=== PATIENT | female | born 1945 | race Caucasian/White ===

== ENCOUNTER 2017-08-31 01:32 | Emergency (ER) | payer OTHER ==
[~2017-08-31 01:32] MED LIST: AZIT250T PO; PRED20TA PO
[2017-08-31 02:08] LABS: BASO # 0.1 x10^3/uL (0.0-0.2); BASO % 1 % (0-3); EOS % 2 % (0-3); HEMATOCRIT 44.5 % (36.0-47.0); HEMOGLOBIN 15.1 g/dL (12.0-15.5); LYMPH # 2.6 x10^3/uL (1.0-4.8); LYMPH % 30 % (24-48); MEAN CORPUSCULAR HEMOGLOBIN 32 pg (25-35); MEAN CORPUSCULAR HGB CONC 34 g/dL (31-37); MEAN CORPUSCULAR VOLUME 94 fL (79-100); MONO % 7 % (0-9); NEUT % 61 % (31-73); PLATELET COUNT 172 x10^3/uL (140-400); RED BLOOD COUNT 4.76 x10^6/uL (3.50-5.40); RED CELL DISTRIBUTION WIDTH 13.6 % (11.5-14.5); WHITE BLOOD COUNT 8.8 x10^3/uL (4.0-11.0)
[2017-08-31 02:17] LABS: CALCIUM 9.7 mg/dL (8.5-10.1); CREATININE 0.8 mg/dL (0.6-1.0); GFR 70.9; POTASSIUM 3.4 mmol/L (3.5-5.1)
--- NOTE | 2017-08-31 02:19 | PHYS DOC ---
Past Medical History Past Medical History: Hypertension Past Surgical History: Smoking: Cigarettes Alcohol Use: None Drug Use: None Adult General Chief Complaint Chief Complaint: ABDOMINAL PAIN HPI HPI Patient is a 71 year old FEMALE who presents with abdominal pain. Started at 1700 PM on Wednesday. Pain has been constant. It is on her left side. No nausea or vomiting. Normal stools; no diarrhea or blood. No recent travel. Ate citizen of [place] food yesterday. No difficulty urinating. Review of Systems Review of Systems Constitutional: Denies fever or chills Eyes: Denies change in visual acuity, redness, or eye pain HENT: Denies nasal congestion or sore throat Respiratory: Denies cough or shortness of breath Cardiovascular: No chest pain GI: See HPI : Denies dysuria or hematuria Musculoskeletal: Denies back pain or joint pain Integument: Denies rash or skin lesions Neurologic: Denies headache, focal weakness or sensory changes Current Medications Current Medications Current Medications Medications (Trade) Dose Ordered Sig/Ester Start Time Stop Time Status Last Admin Dose Admin Fentanyl Citrate (Fentanyl 2ml Vial) 50 mcg 1X ONCE 08/31/17 02:30 08/31/17 02:31 DC 08/31/17 02:13 50 MCG Hydromorphone HCl (Dilaudid) 0.5 mg 1X ONCE 08/31/17 03:00 08/31/17 03:01 DC 08/31/17 02:58 0.5 MG Ondansetron HCl (Zofran) 4 mg 1X ONCE 08/31/17 02:30 08/31/17 02:31 DC 08/31/17 02:13 4 MG Allergies Allergies Allergies Coded Allergies Type Severity Reaction Last Updated Verified No Known Drug Allergies 07/24/16 No Physical Exam Physical Exam Constitutional: Well developed, well nourished, no acute distress, non-toxic appearance. HENT: Normocephalic, atraumatic, bilateral external ears normal, oropharynx moist, no oral exudates, nose normal. Eyes: PERRLA, EOMI, conjunctiva normal, no discharge. Neck: Normal range of motion, no tenderness, supple, no stridor. Cardiovascular:Heart rate regular rhythm, no murmur Lungs & Thorax: Bilateral breath sounds clear to auscultation Abdomen: Bowel sounds normal, soft, tenderness left side; no rebound or guarding, no masses, no pulsatile masses. Skin: Warm, dry, no erythema, no rash. Back: No tenderness, no CVA tenderness. Extremities: No tenderness, no cyanosis, no clubbing, ROM intact, no edema. Neurologic: Alert and oriented X 3, normal motor function, normal sensory function, no focal deficits noted. Psychologic: Affect normal, judgement normal, mood normal. Current Patient Data Vital Signs Vital Signs Date Time Temp Pulse Resp B/P (MAP) Pulse Ox O2 Delivery O2 Flow Rate FiO2 08/31/17 02:27 16 85 Room Air 08/31/17 01:40 98.6 81 199/104 (135) 98.6 Lab Values Laboratory Tests Test 08/31/17 01:41 White Blood Count 8.8 x10^3/uL (4.0-11.0) Red Blood Count 4.76 x10^6/uL (3.50-5.40) Hemoglobin 15.1 g/dL (12.0-15.5) Hematocrit 44.5 % (36.0-47.0) Mean Corpuscular Volume 94 fL (79-100) Mean Corpuscular Hemoglobin 32 pg (25-35) Mean Corpuscular Hemoglobin Concent 34 g/dL (31-37) Red Cell Distribution Width 13.6 % (11.5-14.5) Platelet Count 172 x10^3/uL (140-400) Neutrophils (%) (Auto) 61 % (31-73) Lymphocytes (%) (Auto) 30 % (24-48) Monocytes (%) (Auto) 7 % (0-9) Eosinophils (%) (Auto) 2 % (0-3) Basophils (%) (Auto) 1 % (0-3) Neutrophils # (Auto) 5.4 x10^3uL (1.8-7.7) Lymphocytes # (Auto) 2.6 x10^3/uL (1.0-4.8) Monocytes # (Auto) 0.6 x10^3/uL (0.0-1.1) Eosinophils # (Auto) 0.2 x10^3/uL (0.0-0.7) Basophils # (Auto) 0.1 x10^3/uL (0.0-0.2) Prothrombin Time 12.7 SEC (11.7-14.0) Prothrombin Time INR 1.0 (0.8-1.1) PTT 28 SEC (24-38) Sodium Level 143 mmol/L (136-145) Potassium Level 3.4 mmol/L (3.5-5.1) L Chloride Level 106 mmol/L (98-107) Carbon Dioxide Level 33 mmol/L (21-32) H Anion Gap 4 (6-14) L Blood Urea Nitrogen 15 mg/dL (7-20) Creatinine 0.8 mg/dL (0.6-1.0) Estimated GFR (Cockcroft-Gault) 70.9 BUN/Creatinine Ratio 19 (6-20) Glucose Level 111 mg/dL (70-99) H Calcium Level 9.7 mg/dL (8.5-10.1) Total Bilirubin 0.5 mg/dL (0.2-1.0) Aspartate Amino Transferase (AST) 18 U/L (15-37) Alanine Aminotransferase (ALT) 21 U/L (14-59) Alkaline Phosphatase 80 U/L (46-116) Creatine Kinase 64 U/L (26-192) Creatine Kinase MB (Mass) < 0.5 ng/mL (0.0-3.6) Creatine Kinase MB Relative Index % (0-4) Total Protein 7.4 g/dL (6.4-8.2) Albumin 3.6 g/dL (3.4-5.0) Albumin/Globulin Ratio 0.9 (1.0-1.7) L Lipase 160 U/L (73-393) Laboratory Tests 08/31/17 01:41 Laboratory Tests 08/31/17 01:41 EKG EKG EKG interpreted by myself at 0218 AM: NSR, rate 74 LAD, nonspecific ST changes. Radiology/Procedures Radiology/Procedures [facility] [address] [place], [place] [id number] IMAGING REPORT Signed PATIENT: QUEENIE BATISTA ACCOUNT: [id number] : 1945 LOCATION: ER AGE: 71 SEX: F EXAM STATUS: REG ER ORD. PHYSICIAN: FARIBA BRADSHAW MD REASON: left flank pain; r/o kidney stone PROCEDURE: CT ABDOMEN PELVIS WO CONTRAST CT abdomen and pelvis without contrast HISTORY: Left flank pain TECHNIQUE: Helical noncontrast CT imaging of the abdomen and pelvis was acquired. Abdomen findings: Lung bases unremarkable. L5-S1 disc height loss and disc osteophyte with neural foraminal stenoses. Bilateral nephrolithiasis. Moderate left renal hydronephrosis due to a ureteropelvic junction obstructing 5.5 mm calculus with moderate perinephric stranding edema. The left renal vein is asymmetrically distended and hyperdense raising the possibility of left renal vein thrombosis. Liver, gallbladder, spleen, pancreas and adrenals are unremarkable. No obstruction or inflammation GI tract. Appendix is negative. No abdominal fluid. Pelvis findings: Indistinct densities likely postoperative changes of hernia repair mesh plugs at the internal inguinal rings. No bladder calculi. Ovaries obscured by surrounding bowel loops. Bladder, uterus, rectum and bones are unremarkable. IMPRESSION: 1. Moderate left renal hydronephrosis and perinephric edema associated with a 5.5 mm obstructing ureteropelvic junction calculus. 2. Left renal vein is mildly asymmetrically enlarged and mildly hyperdense, this could be indicative of a renal vein thrombosis. 3. Bilateral nephrolithiasis. 4. The appendix is negative. Exposure: One or more of the following individualized dose reduction techniques were utilized for this examination: 1. Automated exposure control 2. Adjustment of the mA and/or kV according to patient size 3. Use of iterative reconstruction technique Electronically signed by: Rebel Walden MD (08/31/2017 3:36 AM) [facility] DICTATED and SIGNED BY: REBEL WALDEN MD DATE: 08/31/17315 CC: FARIBA BRADSHAW MD; NO PCP ~ Course & Med Decision Making Course & Med Decision Making Evaluated patient upon arrival here. My differential for abdominal pain includes but is not limited to appendicitis; cholelithiasis or cholecystitis; renal stones; ureterolithiasis; pancreatitis; urinary tract infection; bowel obstruction; irritable bowel. IV fentanyl was dosed. Laboratory data sent. She is suppose to be on blood pressure medicine but doesn't take anything. Patient with persistent pain. ? Kidney stone. CBC is normal. CT stone protocol ordered. At [address] results back with stone left. Reviewed findings with patient; offered admission she declined. She is much better. Understands that it may not pass. Informed her to f/u w Urology (we do not have here at [place]-referral to ). Dosed here with flomax and cipro and oral pain meds. I have spoken with the patient and/or caregivers. I have explained the patient' s condition, diagnosis and treatment plan based on the information available to me at this time. I have answered the patient's and/or caregiver's questions and addressed any concerns. The patient and/or caregivers have as good an understanding of the patient's diagnosis, condition and treatment plan as can be expected at this point. The patient's condition is stable and appropriate for discharge from the emergency department. The patient will pursue further outpatient evaluation with the primary care physician or other designated or consulting physician as outlined in the discharge instructions. The patient and/or caregivers are agreeable to this plan of care and follow-up instructions have been explained in detail. The patient and/or caregivers have received these instructions in written format and have expressed an understanding of the discharge instructions. The patient and/or caregivers are aware that any significant change in condition or worsening of symptoms should prompt an immediate return to this or the closest emergency department or a call to 91. Cecilia Disclaimer Cecilia Disclaimer This electronic medical record was generated, in whole or in part, using a voice recognition dictation system. Departure Departure Impression: Primary Impression: Abdominal pain Additional Impressions: Medical non-compliance Ureterolithiasis Disposition: HOME, SELF-CARE Condition: STABLE Referrals: NO PCP (PCP) Patient Instructions: Diet for Kidney Stones, Kidney Stones Additional Instructions: YOU NEED TO USE THE STRAINER TO MAKE SURE THE STONE PASSED. WE DO NOT HAVE UROLOGY HERE AT [place]. CALL [facility] TO ARRANGE FOR A FOLLOW UP AT AT [address] [place] [address]. YOU WERE GIVEN A LIST OF PRIMARY CARE PROVIDERS HERE AT [facility]. CALL TO MAKE A GENERAL APPOINTMENT. Scripts Ondansetron (ZOFRAN ODT) 4 Mg Tab.rapdis 4 MG PO BID Y for NAUSEA/VOMITING, #10 TAB Prov: FARIBA BRADSHAW MD 08/31/17 Hydrocodone/Apap 5-325 (NORCO 5-325 TABLET) 1 Each Tablet 1-2 TAB PO Q4-6HRS, #30 TAB Prov: FARIBA BRADSHAW MD 08/31/17 Tamsulosin Hcl (FLOMAX) 0.4 Mg Cap.er.24h 0.4 MG PO DAILY, #14 TAB Prov: FARIBA BRADSHAW MD 08/31/17 Ciprofloxacin Hcl (CIPROFLOXACIN HCL) 500 Mg Tablet 1 TAB PO BID, #14 TAB Prov: FARIBA BRADSHAW MD 08/31/17 Problem Qualifiers Primary Impression: Abdominal pain Abdominal location: left lower quadrant Qualified Codes: R10.32 - Left lower quadrant pain FARIBA BRADSHAW MD Aug 31, 2017 02:18
[2017-08-31 02:24] LABS: ALBUMIN 3.6 g/dL (3.4-5.0); ALBUMIN/GLOBULIN RATIO 0.9 (1.0-1.7); TOTAL BILIRUBIN 0.5 mg/dL (0.2-1.0); TOTAL PROTEIN 7.4 g/dL (6.4-8.2)
[2017-08-31] MEDS ORDERED: fentaNYL PF VIAL 100 MCG/2 ML VIAL IV ONE (02:30)
[2017-08-31] MEDS ORDERED: ONDANSETRON PF 4 MG/2 ML VIAL. IV ONE (02:30)
[2017-08-31 02:32] LABS: CKMB MASS < 0.5 ng/mL (0.0-3.6); CREATINE KINASE 64 U/L (26-192)
[2017-08-31 02:37] LABS: PROTHROMBIN TIME PATIENT 12.7 SEC (11.7-14.0)
[2017-08-31] MEDS ORDERED: HYDROmorphone 2 MG/ML VIAL IV ONE (03:00)
--- NOTE | 2017-08-31 03:40 | RAD ---
CT abdomen and pelvis without contrast HISTORY: Left flank pain TECHNIQUE: Helical noncontrast CT imaging of the abdomen and pelvis was acquired. Abdomen findings: Lung bases unremarkable. L5-S1 disc height loss and disc osteophyte with neural foraminal stenoses. Bilateral nephrolithiasis. Moderate left renal hydronephrosis due to a ureteropelvic junction obstructing 5.5 mm calculus with moderate perinephric stranding edema. The left renal vein is asymmetrically distended and hyperdense raising the possibility of left renal vein thrombosis. Liver, gallbladder, spleen, pancreas and adrenals are unremarkable. No obstruction or inflammation GI tract. Appendix is negative. No abdominal fluid. Pelvis findings: Indistinct densities likely postoperative changes of hernia repair mesh plugs at the internal inguinal rings. No bladder calculi. Ovaries obscured by surrounding bowel loops. Bladder, uterus, rectum and bones are unremarkable. IMPRESSION: 1. Moderate left renal hydronephrosis and perinephric edema associated with a 5.5 mm obstructing ureteropelvic junction calculus. 2. Left renal vein is mildly asymmetrically enlarged and mildly hyperdense, this could be indicative of a renal vein thrombosis. 3. Bilateral nephrolithiasis. 4. The appendix is negative. Exposure: One or more of the following individualized dose reduction techniques were utilized for this examination: 1. Automated exposure control 2. Adjustment of the mA and/or kV according to patient size 3. Use of iterative reconstruction technique Electronically signed by: Sachin Walden MD (08/31/2017 3:36 AM) [facility]
[2017-08-31] MEDS ORDERED: CIPR500T PO (03:55)
[2017-08-31] MEDS ORDERED: HYDR-971 PO (03:55)
[2017-08-31] MEDS ORDERED: ONDA4TAB10 PO (03:55)
[2017-08-31] MEDS ORDERED: TAMS0.4C97 PO (03:55)
[2017-08-31 03:56] VITALS: BP 159/85
[2017-08-31] MEDS ORDERED: HYDROcodone/APAP 5/325MG 1 TAB TABLET PO ONE (04:30)
[2017-08-31] MEDS ORDERED: TAMSULOSIN 0.4 MG CAP.ER.24H. PO ONE (04:30)
[2017-08-31] MEDS ORDERED: CIPROFLOXACIN HCL 250 MG TABLET. PO ONE (04:30)
--- NOTE | 2017-08-31 08:31 | EKG ---
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
== END 2017-08-31 04:15 | disposition home or self-care (01) ==
LOC: ER 01:32
DX: N20.1 Calculus of ureter (principal); Z91.19 Patient's noncompliance with other medical treatment and regimen; I10 Essential (primary) hypertension; F17.210 Nicotine dependence, cigarettes, uncomplicated
CPT/HCPCS: 36415; 74176; 80053; 82553; 83690; 85025; 85610; 85730; 93005; 96374; 96375; 99285; J1170; J2405; J3010

== ENCOUNTER 2018-03-26 09:54 | Emergency (ER) | payer OTHER ==
[2018-03-26 10:12] LABS: ADD MAN DIFF? NO
[2018-03-26 10:15] LABS: BASO # 0.1 x10^3/uL (0.0-0.2); BASO % 1 % (0-3); EOS # 0.2 x10^3/uL (0.0-0.7); EOS % 3 % (0-3); HEMATOCRIT 44.8 % (36.0-47.0); HEMOGLOBIN 15.2 g/dL (12.0-15.5); LYMPH % 39 % (24-48); MEAN CORPUSCULAR HEMOGLOBIN 32 pg (25-35); MEAN CORPUSCULAR HGB CONC 34 g/dL (31-37); MEAN CORPUSCULAR VOLUME 94 fL (79-100); MONO # 0.5 x10^3/uL (0.0-1.1); MONO % 6 % (0-9); NEUT # 3.9 x10^3uL (1.8-7.7); NEUT % 51 % (31-73); PLATELET COUNT 176 x10^3/uL (140-400); RED BLOOD COUNT 4.79 x10^6/uL (3.50-5.40); WHITE BLOOD COUNT 7.6 x10^3/uL (4.0-11.0)
[2018-03-26] MEDS: KETOROLAC 30 MG/ML INJ. IV (10:22)
[2018-03-26] MEDS: IV NORMAL SALINE 1000ML BAG 1,000 ML IV ×2 (10:22→12:15)
[2018-03-26 10:23] LABS: ANION GAP 7 (6-14); BLOOD UREA NITROGEN 12 mg/dL (7-20); BUN/CREATININE RATIO 17 (6-20); CALCIUM 9.1 mg/dL (8.5-10.1); CARBON DIOXIDE 31 mmol/L (21-32); CHLORIDE 104 mmol/L (98-107); CREATININE 0.7 mg/dL (0.6-1.0); GFR 82.5; GLUCOSE 109 mg/dL (70-99); POTASSIUM 3.9 mmol/L (3.5-5.1); SODIUM 142 mmol/L (136-145)
[2018-03-26] MEDS: ONDANSETRON PF 4 MG/2 ML VIAL. IV (10:23)
[2018-03-26] MEDS: fentaNYL PF VIAL 100 MCG/2 ML VIAL IV (10:23)
[2018-03-26 10:29] LABS: ALBUMIN 3.8 g/dL (3.4-5.0); ALBUMIN/GLOBULIN RATIO 0.9 (1.0-1.7); ALK PHOS 84 U/L (46-116); ALT (SGPT) 15 U/L (14-59); AST (SGOT) 13 U/L (15-37); LIPASE 111 U/L (73-393); TOTAL BILIRUBIN 0.6 mg/dL (0.2-1.0)
[2018-03-26 12:15] LABS: BILIRUBIN,URINE NEGATIVE (NEG); CLARITY,URINE CLEAR; COLOR,URINE YELLOW; GLUCOSE,URINE NEGATIVE (NEG); NITRITE,URINE NEGATIVE (NEG); PROTEIN,URINE NEGATIVE (NEG-TRACE); UROBILINOGEN,URINE 0.2 mg/dL (0.2 mg/dL)
[2018-03-26 12:25] LABS: SQUAMOUS EPITHELIAL CELL,UR FEW /LPF
[2018-03-26 12:26] LABS: BACTERIA,URINE FEW /HPF (0-FEW)
== END 2018-03-26 12:55 | disposition home or self-care (01) ==
LOC: ER 09:54
DX: N13.2 Hydronephrosis with renal and ureteral calculous obstruction (principal); K57.30 Diverticulosis of large intestine without perforation or abscess without bleeding; I10 Essential (primary) hypertension; Z98.890 Other specified postprocedural states
CPT/HCPCS: 36415; 74176; 80053; 81001; 83690; 85025; 96374; 96375; 99285-25; J1885; J2405; J3010; J7030

== ENCOUNTER 2018-04-05 10:53 | Observation (INO) | payer OTHER ==
[~2018-04-05 10:53] MED LIST changes: -AZIT250T PO; +LIDOCAINE 1% PF 2 ML VIAL. ID; -PRED20TA PO; +PROCHLORPERAZINE 10 MG/2 ML VIAL. IV; +fentaNYL PF VIAL 100 MCG/2 ML VIAL IV
[2018-04-05] MEDS ORDERED: ceFAZolin 2GM PREMIX 2 GM/50 ML BAG IV (12:00)
[2018-04-05] MEDS ORDERED: fentaNYL PF VIAL 100 MCG/2 ML VIAL (12:10)
[2018-04-05] MEDS ORDERED: LIDOCAINE 2% PF Vial for OR 5 ML VIAL. (12:10)
[2018-04-05] MEDS ORDERED: SEVOFLURANE 61 TO 120 MINUTES. IH (12:10)
[2018-04-05] MEDS ORDERED: KETOROLAC 30 MG/ML INJ FOR OR. INJ (12:10)
[2018-04-05] MEDS ORDERED: MIDAZOLAM HCL/PF 2 MG/2 ML VIAL. (12:10)
[2018-04-05] MEDS ORDERED: PROPOFOL 20 ML IV (12:10)
[2018-04-05] MEDS ORDERED: ONDANSETRON PF 4 MG/2 ML VIAL. (12:10)
[2018-04-05] MEDS ORDERED: DEXAMETHASONE SOD PHOS 20 MG/5 ML VIAL. (12:10)
[2018-04-05] MEDS: IV RINGERS,LACTATED 1000ML 1,000 ML IV (12:17)
[2018-04-05] MEDS: IOHEXOL 300 MG/ML 100ML VIAL. (13:49)
[2018-04-05] MEDS ORDERED: NALOXONE 0.4 MG/ML VIAL. IV (15:00)
[2018-04-05] MEDS ORDERED: ONDANSETRON PF 4 MG/2 ML VIAL. IV (15:00)
[2018-04-05] MEDS ORDERED: 0.9 % SODIUM CHLORIDE 10 ML DISP.SYRIN. IV (15:00)
[2018-04-05] MEDS: fentaNYL PF VIAL 100 MCG/2 ML VIAL IV ×2 (15:01→15:16)
[2018-04-05] MEDS: MORPHINE SULFATE 4 MG/ML DISP.SYRIN. IV ×2 (15:39→15:49)
[2018-04-05] MEDS: POTASSIUM CL 20MEQ-0.45% NACL 1,000 ML IV (16:00)
[2018-04-05] MEDS: HYDROcodone/APAP 5/325MG 1 TAB TABLET PO ×2 (18:15→22:06)
[2018-04-05] MEDS: KETOROLAC 15 MG/ML VIAL. IV (18:15)
[2018-04-05] MEDS: ACETAMINOPHEN 325 MG TABLET. PO (20:09)
[2018-04-05] MEDS: SENNOSIDES/DOCUSATE 8.6/50MG TABLET. PO (22:04)
[2018-04-06] MEDS: KETOROLAC 15 MG/ML VIAL. IV (01:39)
[2018-04-06] MEDS: POTASSIUM CL 20MEQ-0.45% NACL 1,000 ML IV ×3 (02:00→12:00)
[2018-04-06] MEDS: HYDROcodone/APAP 5/325MG 1 TAB TABLET PO ×2 (03:10→08:41)
[2018-04-06] MEDS: SENNOSIDES/DOCUSATE 8.6/50MG TABLET. PO (08:39)
== END 2018-04-06 14:04 | disposition home or self-care (01) ==
LOC: SURG 10:53 → 4 NORTH 15:50
DX: N20.1 Calculus of ureter (principal); N21.0 Calculus in bladder; N13.8 Other obstructive and reflux uropathy
CPT/HCPCS: 52356; 74420; 96365; 96375; 96376; A7015; C1769; C2617; G0378; G0379; J0690; J1100; J1885; J2250; J2270; J2405; J2704; J3010; J7120; Q9967

== ENCOUNTER 2018-04-12 23:45 | Emergency (ER) | payer OTHER ==
[2018-04-13 00:17] LABS: ADD MAN DIFF? NO
[2018-04-13 00:20] LABS: BASO # 0.1 x10^3/uL (0.0-0.2); BASO % 1 % (0-3); EOS # 0.3 x10^3/uL (0.0-0.7); EOS % 3 % (0-3); HEMATOCRIT 41.3 % (36.0-47.0); HEMOGLOBIN 14.2 g/dL (12.0-15.5); LYMPH # 3.1 x10^3/uL (1.0-4.8); LYMPH % 30 % (24-48); MEAN CORPUSCULAR HEMOGLOBIN 32 pg (25-35); MEAN CORPUSCULAR HGB CONC 34 g/dL (31-37); MEAN CORPUSCULAR VOLUME 94 fL (79-100); MONO # 0.5 x10^3/uL (0.0-1.1); MONO % 5 % (0-9); NEUT # 6.4 x10^3uL (1.8-7.7); NEUT % 62 % (31-73); PLATELET COUNT 217 x10^3/uL (140-400); RED BLOOD COUNT 4.39 x10^6/uL (3.50-5.40); RED CELL DISTRIBUTION WIDTH 13.8 % (11.5-14.5); WHITE BLOOD COUNT 10.3 x10^3/uL (4.0-11.0)
[2018-04-13] MEDS: IV NORMAL SALINE 1000ML BAG 1,000 ML IV (00:20)
[2018-04-13] MEDS: fentaNYL PF VIAL 100 MCG/2 ML VIAL IV (00:21)
[2018-04-13] MEDS: MAGNESIUM HYDROXIDE 2,400 MG/30 ML ORAL.SUSP. PO (00:21)
[2018-04-13 00:43] LABS: ANION GAP 11 (6-14); BLOOD UREA NITROGEN 21 mg/dL (7-20); BUN/CREATININE RATIO 23 (6-20); CALCIUM 9.3 mg/dL (8.5-10.1); CARBON DIOXIDE 29 mmol/L (21-32); CHLORIDE 105 mmol/L (98-107); CREATININE 0.9 mg/dL (0.6-1.0); GFR 61.7; GLUCOSE 168 mg/dL (70-99); POTASSIUM 3.8 mmol/L (3.5-5.1); SODIUM 145 mmol/L (136-145)
[2018-04-13 00:49] LABS: ALBUMIN 3.8 g/dL (3.4-5.0); ALK PHOS 82 U/L (46-116); ALT (SGPT) 16 U/L (14-59); AST (SGOT) 23 U/L (15-37); LIPASE 135 U/L (73-393); TOTAL BILIRUBIN 0.5 mg/dL (0.2-1.0); TOTAL PROTEIN 7.7 g/dL (6.4-8.2)
[2018-04-13 01:23] LABS: BILIRUBIN,URINE MODERATE (NEG); CLARITY,URINE CLOUDY; COLOR,URINE RED; GLUCOSE,URINE NEGATIVE (NEG); NITRITE,URINE NEGATIVE (NEG); PROTEIN,URINE >=300 mg/dL (NEG-TRACE)
[2018-04-13 01:48] LABS: BACTERIA,URINE MODERATE /HPF (0-FEW); RBC,URINE TNTC /HPF (0-2); SQUAMOUS EPITHELIAL CELL,UR FEW /LPF
== END 2018-04-13 02:36 | disposition home or self-care (01) ==
LOC: ER 23:45
DX: K59.00 Constipation, unspecified (principal); R11.0 Nausea; R31.9 Hematuria, unspecified; I10 Essential (primary) hypertension; Z88.5 Allergy status to narcotic agent; Z87.442 Personal history of urinary calculi
CPT/HCPCS: 36415; 74176; 80053; 81001; 83690; 85025; 87086; 96374; 99285-25; J3010; J7030

== ENCOUNTER → 2018-07-14 | Outpatient (CLI) | payer OTHER ==
[2018-04-13 02:30] VITALS: BP 141/72
[~2018-07-14] MED LIST changes: +AZIT250T PO; +CIPR500T PO; +CIPR500T94 PO; +DOCU-109 PO; +HYDR-971 PO; -LIDOCAINE 1% PF 2 ML VIAL. ID; +ONDA4TAB10 PO; +ONDA4TAB10 SL; +PRED20TA PO; -PROCHLORPERAZINE 10 MG/2 ML VIAL. IV; +SENN-79 PO; +TAMS0.4C97 PO; -fentaNYL PF VIAL 100 MCG/2 ML VIAL IV
--- NOTE | 2018-07-14 16:06 | RAD ---
DATE: 07/14/2018 EXAM: MAMMO VEL SCREENING BILATERAL HISTORY: Routine screening COMPARISON: Baseline study This study was interpreted with the benefit of Computerized Aided Detection (CAD). The breast parenchyma is heterogeneously dense, which could reduce sensitivity of mammography. Breast parenchyma level C. FINDINGS: 2-D and 3-D tomosynthesis imaging was performed in CC and MLO projections. No spiculated mass or architectural distortion is evident. Benign type calcifications are present. No suspicious microcalcifications are seen. IMPRESSION: There is no mammographic evidence of malignancy in either breast. BI-RADS CATEGORY: 2 BENIGN FINDING(S) RECOMMENDED FOLLOW-UP: 12M 12 MONTH FOLLOW-UP PQRS compliance statement: Patient information was entered into a reminder system with a target due date for the next mammogram. Mammography is a sensitive method for finding small breast cancers, but it does not detect them all and is not a substitute for careful clinical examination. A negative mammogram does not negate a clinically suspicious finding and should not result in delay in biopsying a clinically suspicious abnormality. "Our facility is accredited by the [employer] Mammography Program."
== END | disposition home or self-care (01) ==
LOC: MAMMO 09:21
PROVIDERS: ATTEND Pediatrics
DX: Z12.31 Encounter for screening mammogram for malignant neoplasm of breast (principal); I10 Essential (primary) hypertension; K21.9 Gastro-esophageal reflux disease without esophagitis; Z82.49 Family history of ischemic heart disease and other diseases of the circulatory system; Z87.891 Personal history of nicotine dependence; Z87.442 Personal history of urinary calculi; Z88.5 Allergy status to narcotic agent
CPT/HCPCS: 77063; 77067

== ENCOUNTER 2019-08-07 20:11 | Inpatient (IN) | payer OTHER, MEDICAID ==
[~2019-08-07] VITALS: Ht 177.8 cm; Wt 67.3 kg
[~2019-08-07 20:11] MED LIST changes: +HYDR-3164 PO; -HYDR-971 PO; -SENN-79 PO; +SENN-80 PO
[2019-08-07] MEDS ORDERED: IV NORMAL SALINE 500ML BAG 500 ML IV SCH ×2 (20:30→20:44)
[2019-08-07 20:37] LABS: BASO # 0.1 x10^3/uL (0.0-0.2); BASO % 1 % (0-3); EOS # 0.1 x10^3/uL (0.0-0.7); EOS % 1 % (0-3); HEMATOCRIT 43.6 % (36.0-47.0); LYMPH # 4.6 x10^3/uL (1.0-4.8); LYMPH % 47 % (24-48); MEAN CORPUSCULAR HEMOGLOBIN 32 pg (25-35); MEAN CORPUSCULAR HGB CONC 34 g/dL (31-37); MEAN CORPUSCULAR VOLUME 94 fL (79-100); MONO # 0.5 x10^3/uL (0.0-1.1); MONO % 5 % (0-9); NEUT # 4.4 x10^3/uL (1.8-7.7); NEUT % 46 % (31-73); PLATELET COUNT 172 x10^3/uL (140-400); RED BLOOD COUNT 4.64 x10^6/uL (3.50-5.40); RED CELL DISTRIBUTION WIDTH 13.5 % (11.5-14.5); WHITE BLOOD COUNT 9.6 x10^3/uL (4.0-11.0)
--- NOTE | 2019-08-07 20:41 | PHYS DOC ---
Past Medical History Past Medical History: Hypertension, Kidney Stone Past Surgical History: , Other Additional Past Surgical Histo: HERNIA X 2, kidney stents Alcohol Use: None Drug Use: None Adult General Chief Complaint Chief Complaint: SYNCOPE HPI HPI 73-year-old female presents to the emergency department via EMS after syncopal episode. Patient apparently was riding her bike today stopped at a bar for beer she could couple sips of beer, and a cigarette off of someone as well subse quently had a syncopal episode unknown amount time patient was out. She had no prodromal symptoms. She was diaphoretic as well as nauseous and vomiting post episode. Patient did have incontinence of bladder. She denies history of seizure. Denies any drug use. Patient was apparently hypoxic with 85% upon EMS arrival however now is 94% on a couple liters of oxygen. Review of Systems Review of Systems Constitutional: Denies fever or chills [] Eyes: Denies change in visual acuity, redness, or eye pain [] Respiratory: Denies cough or shortness of breath [] Cardiovascular: No additional information not addressed in HPI [] GI: intermittent abdominal pain, nausea, vomiting, no bloody stools or diarrhea [] : Denies dysuria or hematuria [] Musculoskeletal: Denies back pain or joint pain [] Neurologic: Denies headache, focal weakness or sensory changes [] All other systems were reviewed and found to be within normal limits, except as documented in this note. Current Medications Current Medications Current Medications Medications (Trade) Dose Ordered Sig/Ester Start Time Stop Time Status Last Admin Dose Admin Sodium Chloride 500 ml @ 500 mls/hr Q1H 08/07/19 20:44 08/07/19 21:29 DC 08/07/19 20:46 500 MLS/HR Allergies Allergies Allergies Coded Allergies Type Severity Reaction Last Updated Verified codeine Adverse Reaction Mild Itching 04/05/18 Yes Physical Exam Physical Exam Constitutional: Well developed, well nourished, no acute distress, non-toxic appearance. [] HENT: Normocephalic, atraumatic, bilateral external ears normal, oropharynx moist, no oral exudates, nose normal. [] Eyes: PERRLA, EOMI, conjunctiva normal, no discharge. [] Cardiovascular:Heart rate regular rhythm, no murmur [] Lungs & Thorax: Bilateral breath sounds clear to auscultation [] Abdomen: Bowel sounds normal, soft, no tenderness, no masses, no pulsatile masses. [] Skin: Warm, dry, no erythema, no rash. [] Extremities: No tenderness, no cyanosis, no edema. [] Neurologic: Alert and oriented X 3, no focal deficits noted. [] Psychologic: Affect normal, judgement normal, mood normal. [] Current Patient Data Vital Signs Vital Signs Date Time Temp Pulse Resp B/P (MAP) Pulse Ox O2 Delivery O2 Flow Rate FiO2 08/07/19 20:11 97.6 77 22 94/56 (69) 85 Room Air 97.6 Lab Values Laboratory Tests Test 08/07/19 20:17 White Blood Count 9.6 x10^3/uL (4.0-11.0) Red Blood Count 4.64 x10^6/uL (3.50-5.40) Hemoglobin 15.0 g/dL (12.0-15.5) Hematocrit 43.6 % (36.0-47.0) Mean Corpuscular Volume 94 fL (79-100) Mean Corpuscular Hemoglobin 32 pg (25-35) Mean Corpuscular Hemoglobin Concent 34 g/dL (31-37) Red Cell Distribution Width 13.5 % (11.5-14.5) Platelet Count 172 x10^3/uL (140-400) Neutrophils (%) (Auto) 46 % (31-73) Lymphocytes (%) (Auto) 47 % (24-48) Monocytes (%) (Auto) 5 % (0-9) Eosinophils (%) (Auto) 1 % (0-3) Basophils (%) (Auto) 1 % (0-3) Neutrophils # (Auto) 4.4 x10^3/uL (1.8-7.7) Lymphocytes # (Auto) 4.6 x10^3/uL (1.0-4.8) Monocytes # (Auto) 0.5 x10^3/uL (0.0-1.1) Eosinophils # (Auto) 0.1 x10^3/uL (0.0-0.7) Basophils # (Auto) 0.1 x10^3/uL (0.0-0.2) D-Dimer (Anne) 0.70 ug/mlFEU (0.00-0.50) H Sodium Level 142 mmol/L (136-145) Potassium Level 3.4 mmol/L (3.5-5.1) L Chloride Level 105 mmol/L (98-107) Carbon Dioxide Level 28 mmol/L (21-32) Anion Gap 9 (6-14) Blood Urea Nitrogen 21 mg/dL (7-20) H Creatinine 0.9 mg/dL (0.6-1.0) Estimated GFR (Cockcroft-Gault) 61.5 BUN/Creatinine Ratio 23 (6-20) H Glucose Level 122 mg/dL (70-99) H Lactic Acid Level 1.7 mmol/L (0.4-2.0) Calcium Level 9.1 mg/dL (8.5-10.1) Magnesium Level 1.8 mg/dL (1.8-2.4) Total Bilirubin 0.5 mg/dL (0.2-1.0) Aspartate Amino Transferase (AST) 18 U/L (15-37) Alanine Aminotransferase (ALT) 17 U/L (14-59) Alkaline Phosphatase 78 U/L (46-116) Troponin I Quantitative < 0.017 ng/mL (0.000-0.055) Total Protein 7.2 g/dL (6.4-8.2) Albumin 3.6 g/dL (3.4-5.0) Albumin/Globulin Ratio 1.0 (1.0-1.7) Laboratory Tests 08/07/19 20:17 Laboratory Tests 08/07/19 20:17 EKG EKG EKG reviewed, sinus rhythm, heart rate 79, no evidence of acute ST elevation,[] Interpretation Time: Interpretation time 2017 Radiology/Procedures Radiology/Procedures [facility] [address] [place] [address] IMAGING REPORT Signed PATIENT: QUEENIE GUERRA ACCOUNT: [id number] : 1945 LOCATION: ER AGE: 73 SEX: F EXAM STATUS: REG ER ORD. PHYSICIAN: CELINA LOBATO MD REASON: syncope PROCEDURE: PORTABLE CHEST 1V Single view chest dated 08/07/2019. Comparison made to 08/31/2017. Clinical data indication: Syncope. FINDINGS: Single upright portable exam performed. Heart and mediastinal contours are stable. Lungs are hyperinflated but otherwise clear. No consolidation or pleural effusion. No pneumothorax. IMPRESSION: No acute radiographic abnormality. Stable findings compared to 08/31/2017. Electronically signed by: James Mendoza MD (08/07/2019 9:28 PM) [facility] DICTATED and SIGNED BY: JAMES MENDOZA MD DATE: 08/07/192127 [] Course & Med Decision Making Course & Med Decision Making Pertinent Labs and Imaging studies reviewed. (See chart for details) []73-year-old female presents to the emergency department via EMS after syncopal episode. Patient apparently was riding her bike today stopped at a bar for beer she could couple sips of beer, and a cigarette off of someone as well subsequently had a syncopal episode unknown amount time patient was out. She had no prodromal symptoms. She was diaphoretic as well as nauseous and vomiting post episode. Patient did have incontinence of bladder. She denies history of seizure. Denies any drug use. Patient was apparently hypoxic with 85% upon EMS arrival however now is 94% on a couple liters of oxygen. Labs and imaging reviewed, white blood cell count 9.6, hemoglobin 15, d-dimer is elevated at 0.70 however within normal limits for age-adjusted. Chest x-ray reveals no evidence of acute cardiac, process. Given the unknown cause of syncope, hypoxia, hypotension would recommend observation. Pressures improved currently 133 systolically, troponins within normal limits. Plan admit and trend cardiac enzymes. Dragon Disclaimer Dragon Disclaimer This electronic medical record was generated, in whole or in part, using a voice recognition dictation system. Departure Departure Impression: Primary Impression: Syncope Disposition: ADMITTED INPATIENT Admitting Physician: CISCO Condition: STABLE Referrals: DICK WILSON MD (PCP) Problem Qualifiers Primary Impression: Syncope Syncope type: unspecified Qualified Codes: R55 - Syncope and collapse CELINA LOBATO MD Aug 07, 2019 20:41
[2019-08-07 20:44] LABS: CALCIUM 9.1 mg/dL (8.5-10.1); CREATININE 0.9 mg/dL (0.6-1.0); GFR 61.5; POTASSIUM 3.4 mmol/L (3.5-5.1)
[2019-08-07 20:50] LABS: ALBUMIN 3.6 g/dL (3.4-5.0); MAGNESIUM 1.8 mg/dL (1.8-2.4); TOTAL BILIRUBIN 0.5 mg/dL (0.2-1.0); TOTAL PROTEIN 7.2 g/dL (6.4-8.2)
--- NOTE | 2019-08-07 21:32 | RAD ---
Single view chest dated 08/07/2019. Comparison made to 08/31/2017. Clinical data indication: Syncope. FINDINGS: Single upright portable exam performed. Heart and mediastinal contours are stable. Lungs are hyperinflated but otherwise clear. No consolidation or pleural effusion. No pneumothorax. IMPRESSION: No acute radiographic abnormality. Stable findings compared to 08/31/2017. Electronically signed by: James Mendoza MD (08/07/2019 9:28 PM) [facility]
[2019-08-07] MEDS ORDERED: ONDANSETRON PF 4 MG/2 ML VIAL. IV PRN (22:15)
[2019-08-07 23:30] VITALS: BP 143/79
[2019-08-08] VITALS (8 sets, daily range): BP systolic 111–139; BP diastolic 63–81
[2019-08-08] MEDS: ACETAMINOPHEN 325 MG TABLET. PO PRN ×3 (03:19→16:11)
[2019-08-08 05:00] LABS: BASO % 0 % (0-3); EOS % 0 % (0-3); HEMATOCRIT 39.5 % (36.0-47.0); HEMOGLOBIN 13.3 g/dL (12.0-15.5); LYMPH # 2.1 x10^3/uL (1.0-4.8); LYMPH % 27 % (24-48); MEAN CORPUSCULAR HEMOGLOBIN 32 pg (25-35); MEAN CORPUSCULAR HGB CONC 34 g/dL (31-37); MEAN CORPUSCULAR VOLUME 94 fL (79-100); MONO # 0.4 x10^3/uL (0.0-1.1); MONO % 5 % (0-9); NEUT # 5.1 x10^3/uL (1.8-7.7); NEUT % 67 % (31-73); PLATELET COUNT 149 x10^3/uL (140-400); RED BLOOD COUNT 4.21 x10^6/uL (3.50-5.40); RED CELL DISTRIBUTION WIDTH 13.9 % (11.5-14.5); WHITE BLOOD COUNT 7.6 x10^3/uL (4.0-11.0)
[2019-08-08 05:27] LABS: ALBUMIN 3.1 g/dL (3.4-5.0); ALBUMIN/GLOBULIN RATIO 0.9 (1.0-1.7); CALCIUM 8.7 mg/dL (8.5-10.1); CREATININE 0.8 mg/dL (0.6-1.0); GFR 70.5; POTASSIUM 4.2 mmol/L (3.5-5.1); TOTAL BILIRUBIN 0.5 mg/dL (0.2-1.0); TOTAL PROTEIN 6.4 g/dL (6.4-8.2)
--- NOTE | 2019-08-08 07:32 | EKG ---
[facility] [address] [place] [address] Test Date: 2019-08-07 Test Time: 20:16:16 Pat Name: QUEENIE GUERRA Department: Room: Gender: F Qa Auditor: : 1945 Requested By: CELINA LOBATO Order Number: [id number] Reading MD: Measurements Intervals [place] Rate: 79 P: 76 [place]: 140 QRS: -34 QRSD: 92 T: 73 QT: 404 QTc: 469 Interpretive Statements SINUS RHYTHM RIGHT ATRIAL ENLARGEMENT INDETERMINATE AXIS S1,S2,S3 PATTERN INCOMPLETE RIGHT BUNDLE BRANCH BLOCK QRS(T) CONTOUR ABNORMALITY CANNOT RULE OUT ANTEROSEPTAL MYOCARDIAL DAMAGE T ABNORMALITY IN HIGH LATERAL LEADS ABNORMAL ECG No previous ECG available for comparison
[2019-08-08] MEDS: IV NORMAL SALINE 1000ML BAG 1,000 ML IV SCH ×2 (10:15→23:35)
[2019-08-08 10:32] LABS: CHOLESTEROL/HDL RATIO 4.5
[2019-08-08] MEDS: HYDROcodone/APAP 5/325MG 1 TAB TABLET PO PRN ×2 (12:32→21:46)
--- NOTE | 2019-08-08 12:45 | PDOC1 ---
History and Physical Date of Admission Date of Admission DATE: 08/08/19 TIME: 12:38 Identification/Chief Complaint Chief Complaint syncope and collapse Problems: (1) Syncope Source Source: Chart review, Patient History of Present Illness History of Present Illness 73-year-old female with no significant PMH who presents to the ED after a re ported syncopal episode. patient riding her bike today and stopped at bar to get a beer and only had a few sips of beer and a cigarette. she subsequently had a syncopal episode and unclear how long she was out for. denies any nausea or vomiting. no reported loss of bladder or bowels. no hx of seizure d/o or arrhythmia. no prior hx of stroke. no focal weakness or deficits. states she didn't eat much yesterday. denies any chest pain or palliations. orthostatics not done. currently doesn't take meds. EKG in ED without any acute changes. hospitalist called for admission Past Medical History Cardiovascular: No pertinent hx Pulmonary: No pertinent hx GI: GERD Heme/Onc: No pertinent hx Hepatobiliary: No pertinent hx Psych: No pertinent hx Musculoskeletal: Osteoarthritis Rheumatologic: No pertinent hx Infectious disease: No pertinent hx Renal/: UTI, Other Endocrine: No pertinent hx Past Surgical History Past Surgical History: Hernia Repair Family History Family History: Coronary Artery Disease Social History ALCOHOL: none Drugs: None Current Problem List Problem List Problems Medical Problems: (1) Hypotension Status: Acute (2) Syncope Status: Acute Current Medications Current Medications Current Medications Sodium Chloride 500 ml @ 500 mls/hr Q1H IV ; Start 08/07/19 at 20:30; Stop 08/07/19 at 20:44; Status DC Sodium Chloride 500 ml @ 500 mls/hr Q1H IV Last administered on 08/07/19at 20:46; Start 08/07/19 at 20:44; Stop 08/07/19 at 21:29; Status DC Ondansetron HCl (Zofran) 4 mg PRN Q8HRS PRN IV NAUSEA/VOMITING; Start 08/07/19 at 22:15; Stop 08/08/19 at 22:14 Acetaminophen (Tylenol) 650 mg PRN Q4HRS PRN PO FEVER Last administered on 08/08/19at 08:55; Start 08/07/19 at 22:15; Stop 08/08/19 at 22:14 Sodium Chloride 1,000 ml @ 75 mls/hr [id number] IV Last administered on 08/08/19at 11:51; Start 08/08/19 at 10:15 Acetaminophen/ Hydrocodone Bitart (Lortab 5/325) 1 tab PRN Q6HRS PRN PO PAIN Last administered on 08/08/19at 12:32; Start 08/08/19 at 12:00 Active Scripts Active Senna (Sennosides) 8.6 Mg Tablet 8.6 Mg PO BID Colace (Docusate Sodium) 100 Mg Capsule 1 Cap PO BID [place] 5-325 Tablet (Acetaminophen/Hydrocodone Bitart) 1 Each Tablet 1 Tab PO TID 3 Days Zofran Odt (Ondansetron) 4 Mg Tab.rapdis 1 Tab SL Q8HRS Cipro (Ciprofloxacin Hcl) 500 Mg Tablet 1 Tab PO BID 7 Days Allergies Allergies: Coded Allergies: codeine (Verified Adverse Reaction, Mild, Itching, 04/05/18) ROS Review of System CONSTITUTIONAL: No fever or chills EYES: No recent changes SKIN: No rash or itching CARDIOVASCULAR: No chest pain, syncope, palpitations, or edema RESPIRATORY: No SOB or cough GASTROINTESTINAL: No nausea, vomiting or abdominal pain NEUROLOGICAL: No headaches or weakness ENDOCRINE: No cold or heat intolerance GENITOURINARY: No urgency or frequency of urination MUSCULOSKELETAL: No back pain or joint pain LYMPHATICS: No enlarged lymph nodes PSYCHIATRIC: No anxiety or depression Physical Exam Physical Exam GENERAL: No apparent distress. Alert and oriented. HEENT: Head normocephalic, atraumatic. NECK: Supple LUNGS: Clear to auscultation. HEART: RRR, S1, S2 present, pulses intact ABDOMEN: Soft, positive bowel sounds. EXTREMITIES: No cyanosis or edema. NEUROLOGIC: Normal speech, normal tone PSYCHIATRIC: Normal affect, normal mood. SKIN: No ulceration. Vitals Vitals Vital Signs Date Time Temp Pulse Resp B/P (MAP) Pulse Ox O2 Delivery O2 Flow Rate FiO2 08/08/19 10:52 111/67 (82) 08/08/19 08:00 Room Air 08/08/19 07:00 97.6 67 17 95 97.6 08/07/19 23:30 2.0 Labs Labs Laboratory Tests Test 08/07/19 20:17 08/07/19 22:55 08/08/19 04:15 White Blood Count 9.6 x10^3/uL (4.0-11.0) 7.6 x10^3/uL (4.0-11.0) Red Blood Count 4.64 x10^6/uL (3.50-5.40) 4.21 x10^6/uL (3.50-5.40) Hemoglobin 15.0 g/dL (12.0-15.5) 13.3 g/dL (12.0-15.5) Hematocrit 43.6 % (36.0-47.0) 39.5 % (36.0-47.0) Mean Corpuscular Volume 94 fL (79-100) 94 fL (79-100) Mean Corpuscular Hemoglobin 32 pg (25-35) 32 pg (25-35) Mean Corpuscular Hemoglobin Concent 34 g/dL (31-37) 34 g/dL (31-37) Red Cell Distribution Width 13.5 % (11.5-14.5) 13.9 % (11.5-14.5) Platelet Count 172 x10^3/uL (140-400) 149 x10^3/uL (140-400) Neutrophils (%) (Auto) 46 % (31-73) 67 % (31-73) Lymphocytes (%) (Auto) 47 % (24-48) 27 % (24-48) Monocytes (%) (Auto) 5 % (0-9) 5 % (0-9) Eosinophils (%) (Auto) 1 % (0-3) 0 % (0-3) Basophils (%) (Auto) 1 % (0-3) 0 % (0-3) Neutrophils # (Auto) 4.4 x10^3/uL (1.8-7.7) 5.1 x10^3/uL (1.8-7.7) Lymphocytes # (Auto) 4.6 x10^3/uL (1.0-4.8) 2.1 x10^3/uL (1.0-4.8) Monocytes # (Auto) 0.5 x10^3/uL (0.0-1.1) 0.4 x10^3/uL (0.0-1.1) Eosinophils # (Auto) 0.1 x10^3/uL (0.0-0.7) 0.0 x10^3/uL (0.0-0.7) Basophils # (Auto) 0.1 x10^3/uL (0.0-0.2) 0.0 x10^3/uL (0.0-0.2) D-Dimer (Anne) 0.70 ug/mlFEU (0.00-0.50) Sodium Level 142 mmol/L (136-145) 145 mmol/L (136-145) Potassium Level 3.4 mmol/L (3.5-5.1) 4.2 mmol/L (3.5-5.1) Chloride Level 105 mmol/L (98-107) 108 mmol/L (98-107) Carbon Dioxide Level 28 mmol/L (21-32) 29 mmol/L (21-32) Anion Gap 9 (6-14) 8 (6-14) Blood Urea Nitrogen 21 mg/dL (7-20) 21 mg/dL (7-20) Creatinine 0.9 mg/dL (0.6-1.0) 0.8 mg/dL (0.6-1.0) Estimated GFR (Cockcroft-Gault) 61.5 70.5 BUN/Creatinine Ratio 23 (6-20) 26 (6-20) Glucose Level 122 mg/dL (70-99) 107 mg/dL (70-99) Lactic Acid Level 1.7 mmol/L (0.4-2.0) Calcium Level 9.1 mg/dL (8.5-10.1) 8.7 mg/dL (8.5-10.1) Magnesium Level 1.8 mg/dL (1.8-2.4) Total Bilirubin 0.5 mg/dL (0.2-1.0) 0.5 mg/dL (0.2-1.0) Aspartate Amino Transf (AST/SGOT) 18 U/L (15-37) 18 U/L (15-37) Alanine Aminotransferase (ALT/SGPT) 17 U/L (14-59) 15 U/L (14-59) Alkaline Phosphatase 78 U/L (46-116) 67 U/L (46-116) Troponin I Quantitative < 0.017 ng/mL (0.000-0.055) < 0.017 ng/mL (0.000-0.055) Total Protein 7.2 g/dL (6.4-8.2) 6.4 g/dL (6.4-8.2) Albumin 3.6 g/dL (3.4-5.0) 3.1 g/dL (3.4-5.0) Albumin/Globulin Ratio 1.0 (1.0-1.7) 0.9 (1.0-1.7) Triglycerides Level 63 mg/dL (0-150) Cholesterol Level 184 mg/dL (0-200) LDL Cholesterol, Calculated 130 mg/dL (0-100) VLDL Cholesterol, Calculated 13 mg/dL (0-40) Non-HDL Cholesterol Calculated 143 mg/dL (0-129) HDL Cholesterol 41 mg/dL (40-60) Cholesterol/HDL Ratio 4.5 Thyroid Stimulating Hormone (TSH) 0.477 uIU/mL (0.358-3.74) Laboratory Tests Test 08/07/19 20:17 08/07/19 22:55 08/08/19 04:15 White Blood Count 9.6 x10^3/uL (4.0-11.0) 7.6 x10^3/uL (4.0-11.0) Red Blood Count 4.64 x10^6/uL (3.50-5.40) 4.21 x10^6/uL (3.50-5.40) Hemoglobin 15.0 g/dL (12.0-15.5) 13.3 g/dL (12.0-15.5) Hematocrit 43.6 % (36.0-47.0) 39.5 % (36.0-47.0) Mean Corpuscular Volume 94 fL (79-100) 94 fL (79-100) Mean Corpuscular Hemoglobin 32 pg (25-35) 32 pg (25-35) Mean Corpuscular Hemoglobin Concent 34 g/dL (31-37) 34 g/dL (31-37) Red Cell Distribution Width 13.5 % (11.5-14.5) 13.9 % (11.5-14.5) Platelet Count 172 x10^3/uL (140-400) 149 x10^3/uL (140-400) Neutrophils (%) (Auto) 46 % (31-73) 67 % (31-73) Lymphocytes (%) (Auto) 47 % (24-48) 27 % (24-48) Monocytes (%) (Auto) 5 % (0-9) 5 % (0-9) Eosinophils (%) (Auto) 1 % (0-3) 0 % (0-3) Basophils (%) (Auto) 1 % (0-3) 0 % (0-3) Neutrophils # (Auto) 4.4 x10^3/uL (1.8-7.7) 5.1 x10^3/uL (1.8-7.7) Lymphocytes # (Auto) 4.6 x10^3/uL (1.0-4.8) 2.1 x10^3/uL (1.0-4.8) Monocytes # (Auto) 0.5 x10^3/uL (0.0-1.1) 0.4 x10^3/uL (0.0-1.1) Eosinophils # (Auto) 0.1 x10^3/uL (0.0-0.7) 0.0 x10^3/uL (0.0-0.7) Basophils # (Auto) 0.1 x10^3/uL (0.0-0.2) 0.0 x10^3/uL (0.0-0.2) D-Dimer (Anne) 0.70 ug/mlFEU (0.00-0.50) Sodium Level 142 mmol/L (136-145) 145 mmol/L (136-145) Potassium Level 3.4 mmol/L (3.5-5.1) 4.2 mmol/L (3.5-5.1) Chloride Level 105 mmol/L (98-107) 108 mmol/L (98-107) Carbon Dioxide Level 28 mmol/L (21-32) 29 mmol/L (21-32) Anion Gap 9 (6-14) 8 (6-14) Blood Urea Nitrogen 21 mg/dL (7-20) 21 mg/dL (7-20) Creatinine 0.9 mg/dL (0.6-1.0) 0.8 mg/dL (0.6-1.0) Estimated GFR (Cockcroft-Gault) 61.5 70.5 BUN/Creatinine Ratio 23 (6-20) 26 (6-20) Glucose Level 122 mg/dL (70-99) 107 mg/dL (70-99) Lactic Acid Level 1.7 mmol/L (0.4-2.0) Calcium Level 9.1 mg/dL (8.5-10.1) 8.7 mg/dL (8.5-10.1) Magnesium Level 1.8 mg/dL (1.8-2.4) Total Bilirubin 0.5 mg/dL (0.2-1.0) 0.5 mg/dL (0.2-1.0) Aspartate Amino Transf (AST/SGOT) 18 U/L (15-37) 18 U/L (15-37) Alanine Aminotransferase (ALT/SGPT) 17 U/L (14-59) 15 U/L (14-59) Alkaline Phosphatase 78 U/L (46-116) 67 U/L (46-116) Troponin I Quantitative < 0.017 ng/mL (0.000-0.055) < 0.017 ng/mL (0.000-0.055) Total Protein 7.2 g/dL (6.4-8.2) 6.4 g/dL (6.4-8.2) Albumin 3.6 g/dL (3.4-5.0) 3.1 g/dL (3.4-5.0) Albumin/Globulin Ratio 1.0 (1.0-1.7) 0.9 (1.0-1.7) Triglycerides Level 63 mg/dL (0-150) Cholesterol Level 184 mg/dL (0-200) LDL Cholesterol, Calculated 130 mg/dL (0-100) VLDL Cholesterol, Calculated 13 mg/dL (0-40) Non-HDL Cholesterol Calculated 143 mg/dL (0-129) HDL Cholesterol 41 mg/dL (40-60) Cholesterol/HDL Ratio 4.5 Thyroid Stimulating Hormone (TSH) 0.477 uIU/mL (0.358-3.74) VTE Prophylaxis Ordered VTE Prophylaxis Devices: No VTE Pharmacological Prophylaxi: Yes Assessment/Plan Assessment/Plan ASSESSMENT Syncope and Collapse elevated D dimer PLAN: admit to tele bed suspect secondary to decreased PO intake check TTE, TSH, EEG and CTA given elevated d dimer \ check orthostatics FLP okay continue IVF cards consult for ischemic eval, likely outpatient stress test Problem Qualifiers (1) Syncope: Syncope type: unspecified Qualified Codes: R55 - Syncope and collapse NEFTALY CARDOZA MD Aug 08, 2019 12:45
[2019-08-08] MEDS ORDERED: IOHEXOL 350 MG/ML 100 ML VIAL. IV ONE (13:00)
[2019-08-08] MEDS ORDERED: CONTRAST GIVEN. MC PRN (13:00)
[2019-08-08] MEDS ORDERED: HYDROcodone/APAP 5/325MG 1 TAB TABLET PO SCH (14:00)
--- NOTE | 2019-08-08 14:14 | RAD ---
Examination: CT ANGIOGRAPHY CHEST History: Elevated d-dimer, syncope, collapse Comparison/Correlation: None Findings: Axial images of chest were obtained following IV contrast according to pulmonary arteriography protocol. Sagittal and coronal reformatted images were provided. Pulmonary arterial vasculature is normal with no thromboembolic disease. No infiltrates or pleural effusions. No enlarged thoracic lymph nodes. Thoracic aorta is unremarkable but see any motion at the root limits evaluation. Partially visualized upper abdomen is unremarkable. Impression: No pulmonary arterial thromboembolic disease. Unremarkable exam. PQRS Compliance Statement: One or more of the following individualized dose reduction techniques were utilized for this examination: 1. Automated exposure control 2. Adjustment of the mA and/or kV according to patient size 3. Use of iterative reconstruction technique Electronically signed by: Manjinder Guerra MD (08/08/2019 2:11 PM) [facility]
[2019-08-08] MEDS: HEPARIN for SUB-Q USE 5,000 UNIT/ML VIAL. SQ SCH ×2 (14:19→21:55)
--- NOTE | 2019-08-08 14:33 | PDOC2 ---
JUAN HAYNES MANAGER VALIDATION 08/08/19 1433: CARDIAC CONSULT DATE OF CONSULT Date of Consult DATE: 08/08/19 TIME: 14:12 REASON FOR CONSULT Reason for Consult: Syncope REFERRING PHYSICIAN Referring Physician: Latrice SOURCE Source: Chart review, Patient HISTORY OF PRESENT ILLNESS HISTORY OF PRESENT ILLNESS This is a pleasant 73 yo female admitted for complains of passing out. She bikes almost everyday and its been about 2 yrs since her last episodes of passing out. She was a bar and was drinking her first beer when suddenly she felt hot and flushed and the next thing she remembered was waking up on the ground. No CP, SOA, or palpitations. No notable injuries. Reports no focal neuro symptoms. No past CVA, CAD, arrhythmias nor VTE. Yesterday she did not eat breakfast lunch and did not drink much fluids and her syncopal spell occurred in the evening. She does not take any medications. PAST MEDICAL HISTORY Cardiovascular: No pertinent hx Pulmonary: No pertinent hx CENTRAL NERVOUS SYSTEM: Other (No pertinent history) GI: Constipation Heme/Onc: No pertinent hx Hepatobiliary: No pertinent hx Psych: No pertinent hx Musculoskeletal: Osteoarthritis Rheumatologic: No pertinent hx Infectious disease: No pertinent hx ENT: No pertinent hx Renal/: Other (nephrlolithisis) Endocrine: No pertinent hx Dermatology: No pertinent hx PAST SURGICAL HISTORY Past Surgical History: (x2) FAMILY HISTORY Family History: Coronary Artery Disease (father and mother) SOCIAL HISTORY Smoke: 1 pack per day ALCOHOL: occassional Drugs: None Lives: Alone CURRENT MEDICATIONS CURRENT MEDICATIONS Current Medications Medications (Trade) Dose Ordered Sig/Ester Route PRN Reason Start Time Stop Time Status Last Admin Dose Admin Sodium Chloride 500 ml @ 500 mls/hr Q1H IV 08/07/19 20:44 08/07/19 21:29 DC 08/07/19 20:46 Acetaminophen (Tylenol) 650 mg PRN Q4HRS PRN PO FEVER 08/07/19 22:15 08/08/19 22:14 08/08/19 08:55 Sodium Chloride 1,000 ml @ 75 mls/hr [id number] IV 08/08/19 10:15 08/08/19 11:51 Acetaminophen/ Hydrocodone Bitart (Lortab 5/325) 1 tab PRN Q6HRS PRN PO PAIN 08/08/19 12:00 08/08/19 12:32 Iohexol (Omnipaque 350 Mg/ml) 100 ml 1X ONCE IV 08/08/19 13:00 08/08/19 13:01 DC 08/08/19 13:43 ALLERGIES ALLERGIES: Coded Allergies: codeine (Verified Adverse Reaction, Mild, Itching, 04/05/18) ROS Review of System 14 point ROS evaluated with pertinent positives noted per HPI PHYSICAL EXAM General: Alert, Oriented X3, Cooperative, No acute distress HEENT: Atraumatic, Mucous membr. moist/pink Lungs: Clear to auscultation, Normal air movement Heart: Regular rate (SR), Normal S1, Normal S2, Other (2/6 systolci murmur to LLS border) Abdomen: Soft, No tenderness Extremities: No cyanosis, No edema Skin: No breakdown, No significant lesion Neuro: Normal speech, Sensation intact Psych/Mental Status: Mental status NL, Mood NL MUSCULOSKELETAL: Osteoarthritic changes both hands VITALS/I&O VITALS/I&O: Vital Signs Date Time Temp Pulse Resp B/P (MAP) Pulse Ox O2 Delivery O2 Flow Rate FiO2 08/08/19 10:52 111/67 (82) 08/08/19 08:00 Room Air 08/08/19 07:00 97.6 67 17 95 97.6 08/07/19 23:30 2.0 I & O 08/07/19 08/07/19 08/08/19 15:00 23:00 07:00 Intake Total 300 ml Balance 300 ml LABS Lab: Laboratory Tests Test 08/07/19 20:17 08/07/19 22:55 08/08/19 04:15 White Blood Count 9.6 x10^3/uL (4.0-11.0) 7.6 x10^3/uL (4.0-11.0) Red Blood Count 4.64 x10^6/uL (3.50-5.40) 4.21 x10^6/uL (3.50-5.40) Hemoglobin 15.0 g/dL (12.0-15.5) 13.3 g/dL (12.0-15.5) Hematocrit 43.6 % (36.0-47.0) 39.5 % (36.0-47.0) Mean Corpuscular Volume 94 fL (79-100) 94 fL (79-100) Mean Corpuscular Hemoglobin 32 pg (25-35) 32 pg (25-35) Mean Corpuscular Hemoglobin Concent 34 g/dL (31-37) 34 g/dL (31-37) Red Cell Distribution Width 13.5 % (11.5-14.5) 13.9 % (11.5-14.5) Platelet Count 172 x10^3/uL (140-400) 149 x10^3/uL (140-400) Neutrophils (%) (Auto) 46 % (31-73) 67 % (31-73) Lymphocytes (%) (Auto) 47 % (24-48) 27 % (24-48) Monocytes (%) (Auto) 5 % (0-9) 5 % (0-9) Eosinophils (%) (Auto) 1 % (0-3) 0 % (0-3) Basophils (%) (Auto) 1 % (0-3) 0 % (0-3) Neutrophils # (Auto) 4.4 x10^3/uL (1.8-7.7) 5.1 x10^3/uL (1.8-7.7) Lymphocytes # (Auto) 4.6 x10^3/uL (1.0-4.8) 2.1 x10^3/uL (1.0-4.8) Monocytes # (Auto) 0.5 x10^3/uL (0.0-1.1) 0.4 x10^3/uL (0.0-1.1) Eosinophils # (Auto) 0.1 x10^3/uL (0.0-0.7) 0.0 x10^3/uL (0.0-0.7) Basophils # (Auto) 0.1 x10^3/uL (0.0-0.2) 0.0 x10^3/uL (0.0-0.2) D-Dimer (Anne) 0.70 ug/mlFEU (0.00-0.50) H Sodium Level 142 mmol/L (136-145) 145 mmol/L (136-145) Potassium Level 3.4 mmol/L (3.5-5.1) L 4.2 mmol/L (3.5-5.1) Chloride Level 105 mmol/L (98-107) 108 mmol/L (98-107) H Carbon Dioxide Level 28 mmol/L (21-32) 29 mmol/L (21-32) Anion Gap 9 (6-14) 8 (6-14) Blood Urea Nitrogen 21 mg/dL (7-20) H 21 mg/dL (7-20) H Creatinine 0.9 mg/dL (0.6-1.0) 0.8 mg/dL (0.6-1.0) Estimated GFR (Cockcroft-Gault) 61.5 70.5 BUN/Creatinine Ratio 23 (6-20) H 26 (6-20) H Glucose Level 122 mg/dL (70-99) H 107 mg/dL (70-99) H Lactic Acid Level 1.7 mmol/L (0.4-2.0) Calcium Level 9.1 mg/dL (8.5-10.1) 8.7 mg/dL (8.5-10.1) Magnesium Level 1.8 mg/dL (1.8-2.4) Total Bilirubin 0.5 mg/dL (0.2-1.0) 0.5 mg/dL (0.2-1.0) Aspartate Amino Transferase (AST) 18 U/L (15-37) 18 U/L (15-37) Alanine Aminotransferase (ALT) 17 U/L (14-59) 15 U/L (14-59) Alkaline Phosphatase 78 U/L (46-116) 67 U/L (46-116) Troponin I Quantitative < 0.017 ng/mL (0.000-0.055) < 0.017 ng/mL (0.000-0.055) Total Protein 7.2 g/dL (6.4-8.2) 6.4 g/dL (6.4-8.2) Albumin 3.6 g/dL (3.4-5.0) 3.1 g/dL (3.4-5.0) L Albumin/Globulin Ratio 1.0 (1.0-1.7) 0.9 (1.0-1.7) L Triglycerides Level 63 mg/dL (0-150) Cholesterol Level 184 mg/dL (0-200) LDL Cholesterol, Calculated 130 mg/dL (0-100) H VLDL Cholesterol, Calculated 13 mg/dL (0-40) Non-HDL Cholesterol Calculated 143 mg/dL (0-129) H HDL Cholesterol 41 mg/dL (40-60) Cholesterol/HDL Ratio 4.5 Thyroid Stimulating Hormone (TSH) 0.477 uIU/mL (0.358-3.74) Laboratory Tests 08/07/19 20:17 08/08/19 04:15 Laboratory Tests 08/07/19 20:17 08/08/19 04:15 ECHOCARDIOGRAM ECHOCARDIOGRAM <Conclusion> The left ventricular systolic function is normal. The Ejection Fraction is 60-65%. There is normal LV segmental wall motion. Transmitral Doppler flow pattern is Grade I-abnormal relaxation pattern. Trace mitral regurgitation. Trace tricuspid regurgitation. The PA pressure was estimated at 40 mmHg. There is no evidence of significant pericardial effusion. DATE: 08/31/17 165 ASSESSMENT/PLAN ASSESSMENT/PLAN 1. Syncope: likely due to dehydration and/or hypoglycemic episode. Doubt arrhythmias. 2. Anorexia: only eats once a day 3. Tobaccoism 4. Prerenal azotemia: due to dehydration Recommendations 1. Negative for arrhythmias, orthostasis and CSH. TTE today. 2. Check TSH. IV hydration 3. Discussed diet changes and hydration adequacy. 4. Smoking cessation SAE RUST MD 08/08/192057: CARDIAC CONSULT ASSESSMENT/PLAN ASSESSMENT/PLAN Patient seen and examined. Agree with YOUTH OFFICER's assessment and plan. Syncope most probably from dehydration Agree with IV hydration Check 2D echo to assess LVF and rule out structural abnormalities Tele did not show any arrhythmias so far Thank you for your consultation JUAN HAYNES APRN Aug 08, 2019 14:33 SAE RUST MD Aug 08, 2019 20:58
[2019-08-08 15:10] LABS: BILIRUBIN,URINE NEGATIVE (NEG); CLARITY,URINE CLEAR; COLOR,URINE YELLOW; NITRITE,URINE NEGATIVE (NEG); PH,URINE 6.5; PROTEIN,URINE NEGATIVE (NEG-TRACE); UROBILINOGEN,URINE 0.2 mg/dL (0.2 mg/dL)
[2019-08-08 15:18] LABS: BACTERIA,URINE 0 /HPF (0-FEW); RBC,URINE OCC /HPF (0-2); SQUAMOUS EPITHELIAL CELL,UR FEW /LPF; WBC,URINE OCC /HPF (0-4)
[2019-08-08] MEDS: DOCUSATE SODIUM 100 MG CAPSULE. PO SCH (21:00)
[2019-08-08] MEDS: SENNOSIDES 8.6 MG TABLET PO SCH (21:00)
[2019-08-09 03:40] VITALS: BP 160/88
[2019-08-09] MEDS: HEPARIN for SUB-Q USE 5,000 UNIT/ML VIAL. SQ SCH ×2 (06:00→14:00)
[2019-08-09 07:00] VITALS: BP 175/82
--- NOTE | 2019-08-09 08:08 | CARD ---
MR#: [id number] Date of Study: 08/08/2019 Ordering Physician: NEFTALY CARDOZA, Referring Physician: NEFTALY CARDOZA Tech: Dulce Maria Preston RDCS APPROVED REPORT EXAM: Two-dimensional and M-mode echocardiogram with Doppler and color Doppler. Other Information Quality : Good INDICATION Syncope 2D DIMENSIONS RVDd2.0 (2.9-3.5cm)Left Atrium(2D)3.1 (1.6-4.0cm) IVSd1.1 (0.7-1.1cm)Aortic Root(2D)2.9 (2.0-3.7cm) LVDd4.0 (3.9-5.9cm)LVOT Diameter2.0 (1.8-2.4cm) PWd1.1 (0.7-1.1cm)LVDs2.6 (2.5-4.0cm) FS (%) 35.8 %SV47.3 ml LVEF(%)65.8 (>50%) Aortic Valve AoV Peak Chau.109.4cm/sAoV VTI22.8cm AO Peak GR.4.8mmHgLVOT Peak Chau.75.0cm/s LVOT VTI 17.49cmAO Mean GR.3mmHg GILDA (VMAX)2.40wi5NZY (VTI)2.31cm2 Mitral Valve MV E Pambootp47.7cm/sMV DECEL OYSQ577fq MV A Hggvnlue76.7cm/sMV RBR06nd E/A Ratio1.0MVA (PHT)3.05cm2 TDI E/Lateral E'7.9E/Medial E'9.0 Tricuspid Valve TR P. Finkwfyq078ul/sRAP GBIPBKNU3bqTt TR Peak Gr.38jaGjENKB85daOc Pulmonary Vein S1 Lhpxitnr37.2cm/sD2 Oqmoyron87.1cm/s LEFT VENTRICLE The left ventricle is normal size. There is normal left ventricular wall thickness. The left ventricu lar systolic function is normal. The Ejection Fraction is 55-60%. There is normal LV segmental wall m otion. Transmitral Doppler flow pattern is Grade I-abnormal relaxation pattern. RIGHT VENTRICLE The right ventricle is normal size. The right ventricular systolic function is normal. ATRIA The left atrium size is normal. The right atrium size is normal. The interatrial septum is intact wit h no evidence for an atrial septal defect or patent foramen ovale as noted on 2-D or Doppler imaging. AORTIC VALVE The aortic valve is calcified but opens well. Doppler and Color Flow revealed no significant aortic r egurgitation. There is no significant aortic valvular stenosis. MITRAL VALVE The mitral valve is calcified but opens well. There is no evidence of mitral valve prolapse. There is no mitral valve stenosis. Doppler and Color-flow revealed mild mitral regurgitation. TRICUSPID VALVE The tricuspid valve is normal in structure and function. Doppler and Color Flow revealed trace to mil d tricuspid regurgitation. The PA pressure was estimated at 29 mmHg. There is no tricuspid valve sten osis. PULMONIC VALVE The pulmonic valve is not well visualized. Doppler and Color Flow revealed mild pulmonic valvular reg urgitation. There is no pulmonic valvular stenosis. GREAT VESSELS The aortic root is normal in size. The ascending aorta is not well seen. The IVC is normal in size an d collapses >50% with inspiration. PERICARDIAL EFFUSION There is no evidence of significant pericardial effusion. Critical Notification Critical Value: No <Conclusion> The left ventricular systolic function is normal. The Ejection Fraction is 55-60%. There is normal LV segmental wall motion. Mild mitral regurgitation. Trace to mild tricuspid regurgitation. The PA pressure was estimated at 29 mmHg. There is no evidence of significant pericardial effusion. Signed by : Juan Orantes, Electronically Approved : 08/09/2019 08:07:23
[2019-08-09] MEDS: SENNOSIDES 8.6 MG TABLET PO SCH (08:58)
[2019-08-09] MEDS: DOCUSATE SODIUM 100 MG CAPSULE. PO SCH (08:58)
--- NOTE | 2019-08-09 10:22 | PDOC ---
CARDIO Progress Notes Date and Time Date of Service 08/09/19 Time of Evaluation 1020 Subjective Subjective: No Chest Pain, No shortness of breath, No Palpitations, No Dizziness Vitals Vitals Vital Signs Date Time Temp Pulse Resp B/P (MAP) Pulse Ox O2 Delivery O2 Flow Rate FiO2 08/09/19 08:00 Room Air 3.0 08/09/19 07:00 97.8 58 16 175/82 (113) 95 97.8 Weight Weight [ ] Input and Output Intake and Output Intake and Output 08/09/19 07:00 Intake Total 300 ml Output Total 0 ml Balance 300 ml Intake Oral 300 ml Output Urine Total 0 ml # Voids 2 Laboratory Labs Laboratory Tests Test 08/08/19 10:39 08/08/19 14:30 Glucose (Fingerstick) 136 mg/dL (70-99) Urine Collection Type Unknown Urine Color Yellow Urine Clarity Clear Urine pH 6.5 Urine Specific [place] >=1.030 Urine Protein Negative mg/dL (NEG-TRACE) Urine Glucose (UA) Negative mg/dL (NEG) Urine Ketones (Stick) Negative mg/dL (NEG) Urine Blood Trace (NEG) Urine Nitrite Negative (NEG) Urine Bilirubin Negative (NEG) Urine Urobilinogen Dipstick 0.2 mg/dL (0.2 mg/dL) Urine Leukocyte Esterase Negative (NEG) Urine RBC Occ /HPF (0-2) Urine WBC Occ /HPF (0-4) Urine Squamous Epithelial Cells Few /LPF Urine Bacteria 0 /HPF (0-FEW) Urine Mucus Mod /LPF Physical Exam HEENT: Neck Supple W Full Motion Chest: Symmetric LUNGS: Clear to Auscultation Heart: S1S2, RRR, murmurs (2/6 systolic murmur ) Abdomen: Soft N/T Extremities: No Edema Neurology: alert, oriented, follow commands Assessment Assessment 1. Syncope; most probably secondary to dehydration and/or hypoglycemic episode. Resolved with IVFs. No arrhythmias on tele. Echo with preserved LV systolic function. No significant valvular disease. No orthostatic noted 2. Tobaccoism; reinforced cessation 3. Prerenal azotemia; improve with IVFs 4. Hyperlipidemia; LDL 130 Recommendations Maintain adequate hydration No further cardiac workup warranted Supportive care May discharge from a CV standpoint COREY JOE APRN Aug 09, 2019 10:22
[2019-08-09 11:18] VITALS: BP 172/98
[2019-08-09] MEDS: IV NORMAL SALINE 1000ML BAG 1,000 ML IV SCH (12:05)
--- NOTE | 2019-08-09 15:10 | PDOC3 ---
Discharge Summary Visit Information Date of Admission: Aug 07, 2019 Date of Discharge: Aug 09, 2019 Final Diagnosis Problems Medical Problems: (1) Hypotension Status: Acute (2) Syncope Status: Acute Brief Hospital Course Allergies Allergies Coded Allergies Type Severity Reaction Last Updated Verified codeine Adverse Reaction Mild Itching 04/05/18 Yes Vital Signs Vital Signs Date Time Temp Pulse Resp B/P (MAP) Pulse Ox O2 Delivery O2 Flow Rate FiO2 08/09/19 11:18 98.6 60 16 172/98 (122) 92 Room Air 98.6 08/09/19 08:00 3.0 Lab Results GENERAL: No apparent distress. Alert and oriented. HEENT: Head normocephalic, atraumatic. NECK: Supple LUNGS: Clear to auscultation. HEART: RRR, S1, S2 present, pulses intact ABDOMEN: Soft, positive bowel sounds. EXTREMITIES: No cyanosis or edema. NEUROLOGIC: Normal speech, normal tone PSYCHIATRIC: Normal affect, normal mood. SKIN: No ulceration. Laboratory Tests Test 08/07/19 20:17 08/07/19 22:55 08/08/19 04:15 08/08/19 10:39 White Blood Count 9.6 x10^3/uL (4.0-11.0) 7.6 x10^3/uL (4.0-11.0) Red Blood Count 4.64 x10^6/uL (3.50-5.40) 4.21 x10^6/uL (3.50-5.40) Hemoglobin 15.0 g/dL (12.0-15.5) 13.3 g/dL (12.0-15.5) Hematocrit 43.6 % (36.0-47.0) 39.5 % (36.0-47.0) Mean Corpuscular Volume 94 fL (79-100) 94 fL (79-100) Mean Corpuscular Hemoglobin 32 pg (25-35) 32 pg (25-35) Mean Corpuscular Hemoglobin Concent 34 g/dL (31-37) 34 g/dL (31-37) Red Cell Distribution Width 13.5 % (11.5-14.5) 13.9 % (11.5-14.5) Platelet Count 172 x10^3/uL (140-400) 149 x10^3/uL (140-400) Neutrophils (%) (Auto) 46 % (31-73) 67 % (31-73) Lymphocytes (%) (Auto) 47 % (24-48) 27 % (24-48) Monocytes (%) (Auto) 5 % (0-9) 5 % (0-9) Eosinophils (%) (Auto) 1 % (0-3) 0 % (0-3) Basophils (%) (Auto) 1 % (0-3) 0 % (0-3) Neutrophils # (Auto) 4.4 x10^3/uL (1.8-7.7) 5.1 x10^3/uL (1.8-7.7) Lymphocytes # (Auto) 4.6 x10^3/uL (1.0-4.8) 2.1 x10^3/uL (1.0-4.8) Monocytes # (Auto) 0.5 x10^3/uL (0.0-1.1) 0.4 x10^3/uL (0.0-1.1) Eosinophils # (Auto) 0.1 x10^3/uL (0.0-0.7) 0.0 x10^3/uL (0.0-0.7) Basophils # (Auto) 0.1 x10^3/uL (0.0-0.2) 0.0 x10^3/uL (0.0-0.2) D-Dimer (Anne) 0.70 ug/mlFEU (0.00-0.50) Sodium Level 142 mmol/L (136-145) 145 mmol/L (136-145) Potassium Level 3.4 mmol/L (3.5-5.1) 4.2 mmol/L (3.5-5.1) Chloride Level 105 mmol/L (98-107) 108 mmol/L (98-107) Carbon Dioxide Level 28 mmol/L (21-32) 29 mmol/L (21-32) Anion Gap 9 (6-14) 8 (6-14) Blood Urea Nitrogen 21 mg/dL (7-20) 21 mg/dL (7-20) Creatinine 0.9 mg/dL (0.6-1.0) 0.8 mg/dL (0.6-1.0) Estimated GFR (Cockcroft-Gault) 61.5 70.5 BUN/Creatinine Ratio 23 (6-20) 26 (6-20) Glucose Level 122 mg/dL (70-99) 107 mg/dL (70-99) Lactic Acid Level 1.7 mmol/L (0.4-2.0) Calcium Level 9.1 mg/dL (8.5-10.1) 8.7 mg/dL (8.5-10.1) Magnesium Level 1.8 mg/dL (1.8-2.4) Total Bilirubin 0.5 mg/dL (0.2-1.0) 0.5 mg/dL (0.2-1.0) Aspartate Amino Transf (AST/SGOT) 18 U/L (15-37) 18 U/L (15-37) Alanine Aminotransferase (ALT/SGPT) 17 U/L (14-59) 15 U/L (14-59) Alkaline Phosphatase 78 U/L (46-116) 67 U/L (46-116) Troponin I Quantitative < 0.017 ng/mL (0.000-0.055) < 0.017 ng/mL (0.000-0.055) Total Protein 7.2 g/dL (6.4-8.2) 6.4 g/dL (6.4-8.2) Albumin 3.6 g/dL (3.4-5.0) 3.1 g/dL (3.4-5.0) Albumin/Globulin Ratio 1.0 (1.0-1.7) 0.9 (1.0-1.7) Triglycerides Level 63 mg/dL (0-150) Cholesterol Level 184 mg/dL (0-200) LDL Cholesterol, Calculated 130 mg/dL (0-100) VLDL Cholesterol, Calculated 13 mg/dL (0-40) Non-HDL Cholesterol Calculated 143 mg/dL (0-129) HDL Cholesterol 41 mg/dL (40-60) Cholesterol/HDL Ratio 4.5 Thyroid Stimulating Hormone (TSH) 0.477 uIU/mL (0.358-3.74) Glucose (Fingerstick) 136 mg/dL (70-99) Test 08/08/19 14:30 Urine Collection Type Unknown Urine Color Yellow Urine Clarity Clear Urine pH 6.5 Urine Specific [place] >=1.030 Urine Protein Negative mg/dL (NEG-TRACE) Urine Glucose (UA) Negative mg/dL (NEG) Urine Ketones (Stick) Negative mg/dL (NEG) Urine Blood Trace (NEG) Urine Nitrite Negative (NEG) Urine Bilirubin Negative (NEG) Urine Urobilinogen Dipstick 0.2 mg/dL (0.2 mg/dL) Urine Leukocyte Esterase Negative (NEG) Urine RBC Occ /HPF (0-2) Urine WBC Occ /HPF (0-4) Urine Squamous Epithelial Cells Few /LPF Urine Bacteria 0 /HPF (0-FEW) Urine Mucus Mod /LPF Brief Hospital Course 73-year-old female with no significant PMH who presents to the ED after a reported syncopal episode. patient riding her bike today and stopped at bar to get a beer and only had a few sips of beer and a cigarette. she subsequently had a syncopal episode and unclear how long she was out for. denies any nausea or vomiting. no reported loss of bladder or bowels. no hx of seizure d/o or arrhythmia. no prior hx of stroke. no focal weakness or deficits. states she didn't eat much yesterday. denies any chest pain or palliations. orthostatics not done. currently doesn't take meds. EKG in ED without any acute changes. hospitalist called for admission patient admitted for syncope and collapse. d dimer elevated. TTE, CTA all negative. patient refused EEG. suspect syncope due to dehydration and poor po intake. orthostatics checked and okay. did well with IVF. cards consulted and no further workup. no events on tele. patient dced home today Discharge Information Condition at Discharge: Stable Disposition/Orders: D/C to Home Scheduled Ciprofloxacin Hcl (Cipro) 500 Mg Tablet, 1 TAB PO BID for 7 Days, #14 Prescribed by: TERRELL REGAN PA-C on 03/26/18 1239 Last Taken: Unknown Dose on Unknown Date & Time Last Action: Last Taken Edited on 08/08/19 0615 by SIMEON FRY Docusate Sodium (Colace) 100 Mg Capsule, 1 CAP PO BID, #30 Prescribed by: FELICE NUNEZ MD on 04/13/18 0213 Last Taken: Unknown Dose on Unknown Date & Time Last Action: Continued on 08/08/19 1236 by NEFTALY CARDOZA MD Hydrocodone/Apap 5-325 ([place] 5-325 Tablet) 1 Each Tablet, 1 TAB PO TID for 3 Days, #9 Prescribed by: TERRELL REGAN PA-C on 03/26/18 1239 Last Taken: Unknown Dose on Unknown Date & Time Last Action: Continued on 08/08/19 1236 by NEFTALY CARDOZA MD Ondansetron (Zofran Odt) 4 Mg Tab.rapdis, 1 TAB SL Q8HRS, #10 Prescribed by: TERRELL REGAN PA-C on 03/26/18 1239 Last Taken: Unknown Dose on Unknown Date & Time Last Action: Last Taken Edited on 08/08/19 0615 by SIMEON FRY Sennosides (Senna) 8.6 Mg Tablet, 8.6 MG PO BID, #30 Prescribed by: FELICE NUNEZ MD on 04/13/18 0213 Last Taken: Unknown Dose on Unknown Date & Time Last Action: Continued on 08/08/19 1236 by MD NANI CHENG MANEESH MD Aug 09, 2019 15:10
[2019-08-09 15:27] VITALS: BP 162/102
--- NOTE | 2019-08-09 20:54 | EEG ---
DATE OF SERVICE: 08/08/2019 ELECTROENCEPHALOGRAM NUMBER: [id number]. OBJECTIVE: The patient is a 73-year-old female with syncope. DESCRIPTION OF PROCEDURE: This is a digital study. Electrodes are placed according to the international 10-20 system. Bipolar and referential montages are available. INTERPRETATION: The waking background consists of 9-10 Hz, 50-100 microvolt activity, symmetrically distributed over parietooccipital regions and reactive with eye opening. Hyperventilation and intermittent photic stimulation are noncontributory. Stage 1 sleep is achieved with normal electroencephalogram patterns. All computer identified abnormalities are normal variants. There is no focal, paroxysmal, or epileptiform activity. IMPRESSION: Normal electroencephalogram showing no focal, paroxysmal, or epileptiform activity with the patient awake and asleep. Thank you for letting us help with the patient's care. JULIEN GUERRERO MD DR: MERT/alexandre JOB#: [id number] / [id number]
[2019-08-09] MEDS ORDERED: ATORVASTATIN CALCIUM 10 MG TABLET. PO SCH (21:00)
== END 2019-08-09 17:00 | disposition home or self-care (01) | DRG 641 ==
LOC: ER 20:11 → 6 SOUTH 22:23 → OBSVTOIN 22:23
PROVIDERS: ADMIT Internal Medicine; ATTEND Internal Medicine
DX: E86.0 Dehydration (principal); E78.5 Hyperlipidemia, unspecified; F17.210 Nicotine dependence, cigarettes, uncomplicated; I10 Essential (primary) hypertension; M19.90 Unspecified osteoarthritis, unspecified site; I95.9 Hypotension, unspecified; K21.9 Gastro-esophageal reflux disease without esophagitis; R09.02 Hypoxemia; Z82.49 Family history of ischemic heart disease and other diseases of the circulatory system; Z87.442 Personal history of urinary calculi; Z88.8 Allergy status to other drugs, medicaments and biological substances; Z79.899 Other long term (current) drug therapy
CPT/HCPCS: 36415; 71045; 71275; 80053; 80061; 81001; 82962; 83605; 83735; 84443; 84484; 85025; 85379; 93005; 93306; 95816; 96360; 99406; J1644; J7030; J7040; Q9967; 99285-25; G0378

== ENCOUNTER 2020-04-06 11:02 | Emergency (ER) | payer OTHER, MEDICAID ==
[~2020-04-06] VITALS: Ht 180.3 cm; Wt 61.3 kg
[~2020-04-06 11:02] MED LIST changes: +SENN-182 PO; -SENN-80 PO
[2020-04-06] MEDS ORDERED: diazePAM 2 MG TABLET PO ONE (11:15)
[2020-04-06] MEDS ORDERED: MECLIZINE HCL 12.5 MG TABLET. PO ONE (11:15)
[2020-04-06] MEDS ORDERED: IV NORMAL SALINE 1000ML BAG 1,000 ML IV ONE (11:15)
--- NOTE | 2020-04-06 11:17 | EKG ---
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
[2020-04-06 11:33] LABS: BASO % 1 % (0-3); EOS % 1 % (0-3); HEMATOCRIT 45.6 % (36.0-47.0); HEMOGLOBIN 15.3 g/dL (12.0-15.5); LYMPH # 2.3 x10^3/uL (1.0-4.8); LYMPH % 31 % (24-48); MEAN CORPUSCULAR HEMOGLOBIN 31 pg (25-35); MEAN CORPUSCULAR HGB CONC 34 g/dL (31-37); MEAN CORPUSCULAR VOLUME 93 fL (79-100); MONO # 0.3 x10^3/uL (0.0-1.1); MONO % 3 % (0-9); NEUT # 4.9 x10^3/uL (1.8-7.7); NEUT % 65 % (31-73); PLATELET COUNT 180 x10^3/uL (140-400); RED BLOOD COUNT 4.88 x10^6/uL (3.50-5.40); RED CELL DISTRIBUTION WIDTH 13.7 % (11.5-14.5); WHITE BLOOD COUNT 7.6 x10^3/uL (4.0-11.0)
[2020-04-06 11:53] LABS: CALCIUM 8.9 mg/dL (8.5-10.1); CREATININE 0.8 mg/dL (0.6-1.0); GFR 70.3; POTASSIUM 3.8 mmol/L (3.5-5.1)
--- NOTE | 2020-04-06 11:54 | RAD ---
CT head without contrast PQRS statement: CT scans at this facility use dose reduction including either automated exposure control, iterative reconstructions, and /or weight based radiation dosing via mA and kV modification when appropriate to reduce radiation dose to as low as reasonably achievable. HISTORY: Dizziness. Vertigo. FINDINGS: No intracranial hemorrhage, mass, hydrocephalus or infarction. Patchy areas of white matter hypoattenuation of the frontal and parietal lobes are nonspecific although statistically most likely represent changes of chronic small vessel ischemic disease in a patient of this age. Orbits, mastoids and bones are unremarkable. IMPRESSION: No acute abnormality. Electronically signed by: Sachin Walden MD (04/06/2020 11:51 AM) [facility] [place]
[2020-04-06 11:57] LABS: ALBUMIN 3.6 g/dL (3.4-5.0); MAGNESIUM 1.8 mg/dL (1.8-2.4); TOTAL BILIRUBIN 0.5 mg/dL (0.2-1.0); TOTAL PROTEIN 7.3 g/dL (6.4-8.2)
[2020-04-06] MEDS ORDERED: MECL-75 PO (12:10)
--- NOTE | 2020-04-06 12:10 | PHYS DOC ---
Past Medical History Past Medical History: Hypertension, Kidney Stone Past Surgical History: , Other Additional Past Surgical Histo: HERNIA X 2, kidney stents Smoking Status: Current Every Day Smoker Alcohol Use: None Drug Use: None General Adult EDM: Chief Complaint: DIZZY/LIGHT HEADED HPI: HPI: Patient is a 74-year-old very pleasant female who presents with a sudden onset of dizziness. She states this happened last night and then again this morning around 6 AM. She states any movement of her head makes her symptoms worse. She feels like the room is spinning. She denies a headache or lateralizing neurologic weakness. She states she has been unsteady on her feet since the development of the symptoms. She does feel very nauseous but has not vomited. [] Review of Systems: Review of Systems: Constitutional: Denies fever or chills. [] Eyes: Denies change in visual acuity. [] HENT: Denies nasal congestion or sore throat. [] Respiratory: Denies cough or shortness of breath. [] Cardiovascular: Denies chest pain or edema. [] GI: Denies abdominal pain, nausea, vomiting, bloody stools or diarrhea. [] : Denies dysuria. [] Musculoskeletal: Denies back pain or joint pain. [] Integument: Denies rash. [] Neurologic: Per HPI [] Endocrine: Denies polyuria or polydipsia. [] Lymphatic: Denies swollen glands. [] Psychiatric: Denies depression or anxiety. [] Heart Score: Risk Factors: Risk Factors: DM, Current or recent (<one month) smoker, HTN, HLP, family history of CAD, obesity. Risk Scores: Score 0 - 3: 2.5% MACE over next 6 weeks - Discharge Home Score 4 - 6: 20.3% MACE over next 6 weeks - Admit for Clinical Observation Score 7 - 10: 72.7% MACE over next 6 weeks - Early Invasive Strategies Current Medications: Current Medications Medications (Trade) Dose Ordered Sig/Ester Start Time Stop Time Status Last Admin Dose Admin Diazepam (Valium) 2 mg 1X ONCE 04/06/20 11:15 04/06/20 11:16 DC 04/06/20 11:25 2 MG Meclizine HCl (Antivert) 25 mg 1X ONCE 04/06/20 11:15 04/06/20 11:16 DC 04/06/20 11:25 25 MG Sodium Chloride 1,000 ml @ 1,000 mls/hr 1X ONCE 04/06/20 11:15 04/06/20 12:14 04/06/20 11:47 1,000 MLS/HR Allergies: Allergies: Allergies Coded Allergies Type Severity Reaction Last Updated Verified codeine Adverse Reaction Mild Itching 04/05/18 Yes Physical Exam: PE: Constitutional: Frail, elderly mild distress. [] HENT: Normocephalic, atraumatic, bilateral external ears normal, oropharynx moist, no oral exudates, nose normal. [] Eyes: PERRLA, EOMI, conjunctiva normal, no discharge. [] Neck: Normal range of motion, no tenderness, supple, no stridor. [] Cardiovascular:Heart rate regular rhythm, no murmur [] Lungs & Thorax: Bilateral breath sounds clear to auscultation [] Abdomen: Bowel sounds normal, soft, no tenderness, no masses, no pulsatile masses. [] Skin: Warm, dry, no erythema, no rash. [] Back: No tenderness, no CVA tenderness. [] Extremities: No tenderness, no cyanosis, no clubbing, ROM intact, no edema. [] Neurologic: Alert and oriented X 3, normal motor function, normal sensory function, no focal deficits noted. [] Psychologic: Anxious [] Current Patient Data: Labs: Laboratory Tests Test 04/06/20 11:15 White Blood Count 7.6 x10^3/uL (4.0-11.0) Red Blood Count 4.88 x10^6/uL (3.50-5.40) Hemoglobin 15.3 g/dL (12.0-15.5) Hematocrit 45.6 % (36.0-47.0) Mean Corpuscular Volume 93 fL (79-100) Mean Corpuscular Hemoglobin 31 pg (25-35) Mean Corpuscular Hemoglobin Concent 34 g/dL (31-37) Red Cell Distribution Width 13.7 % (11.5-14.5) Platelet Count 180 x10^3/uL (140-400) Neutrophils (%) (Auto) 65 % (31-73) Lymphocytes (%) (Auto) 31 % (24-48) Monocytes (%) (Auto) 3 % (0-9) Eosinophils (%) (Auto) 1 % (0-3) Basophils (%) (Auto) 1 % (0-3) Neutrophils # (Auto) 4.9 x10^3/uL (1.8-7.7) Lymphocytes # (Auto) 2.3 x10^3/uL (1.0-4.8) Monocytes # (Auto) 0.3 x10^3/uL (0.0-1.1) Eosinophils # (Auto) 0.0 x10^3/uL (0.0-0.7) Basophils # (Auto) 0.0 x10^3/uL (0.0-0.2) Sodium Level 139 mmol/L (136-145) Potassium Level 3.8 mmol/L (3.5-5.1) Chloride Level 102 mmol/L (98-107) Carbon Dioxide Level 34 mmol/L (21-32) H Anion Gap 3 (6-14) L Blood Urea Nitrogen 16 mg/dL (7-20) Creatinine 0.8 mg/dL (0.6-1.0) Estimated GFR (Cockcroft-Gault) 70.3 BUN/Creatinine Ratio 20 (6-20) Glucose Level 128 mg/dL (70-99) H Calcium Level 8.9 mg/dL (8.5-10.1) Magnesium Level 1.8 mg/dL (1.8-2.4) Total Bilirubin 0.5 mg/dL (0.2-1.0) Aspartate Amino Transferase (AST) 20 U/L (15-37) Alanine Aminotransferase (ALT) 21 U/L (14-59) Alkaline Phosphatase 77 U/L (46-116) Total Protein 7.3 g/dL (6.4-8.2) Albumin 3.6 g/dL (3.4-5.0) Albumin/Globulin Ratio 1.0 (1.0-1.7) Thyroid Stimulating Hormone (TSH) 0.701 uIU/mL (0.358-3.74) Laboratory Tests 04/06/20 11:15 Laboratory Tests 04/06/20 11:15 Vital Signs: Vital Signs Date Time Temp Pulse Resp B/P (MAP) Pulse Ox O2 Delivery O2 Flow Rate FiO2 04/06/20 11:02 98.7 78 20 146/86 (106) 95 Room Air 98.7 EKG: EKG: [] EKG: Normal sinus rhythm rate of [address]-T changes Radiology/Procedures: Radiology/Procedures: [] Impression: PROCEDURE: CT HEAD WO CONTRAST CT head without contrast PQRS statement: CT scans at this facility use dose reduction including either automated exposure control, iterative reconstructions, and /or weight based radiation dosing via mA and kV modification when appropriate to reduce radiation dose to as low as reasonably achievable. HISTORY: Dizziness. Vertigo. FINDINGS: No intracranial hemorrhage, mass, hydrocephalus or infarction. Patchy areas of white matter hypoattenuation of the frontal and parietal lobes are nonspecific although statistically most likely represent changes of chronic small vessel ischemic disease in a patient of this age. Orbits, mastoids and bones are unremarkable. IMPRESSION: No acute abnormality. Course & Med Decision Making: Course & Med Decision Making Pertinent Labs and Imaging studies reviewed. (See chart for details) [ED course: Evaluation reveals a 74-year-old female with vertiginous type symptoms. She was given meclizine and Valium along with some IV fluids during her stay in the department which did help alleviate her symptoms. I will provide her a prescription for meclizine at home.] Dragon Disclaimer: Dragon Disclaimer: This electronic medical record was generated, in whole or in part, using a voice recognition dictation system. Departure Departure Impression: Primary Impression: Vertigo Disposition: 01 HOME, SELF-CARE Condition: IMPROVED Referrals: DICK WILSON MD (PCP) Patient Instructions: Benign Positional Vertigo, Vertigo Scripts Meclizine Hcl (MECLIZINE HCL) 25 Mg Tablet 1 TAB PO Q8HRS PRN for dizziness, #30 TAB 30 Refills Prov: LACEY PEDERSON DO 04/06/20 LACEY PEDERSON DO April 06, 2020 12:10
[2020-04-06 12:14] VITALS: BP 136/72
[2020-04-06 12:21] LABS: BILIRUBIN,URINE NEGATIVE (NEG); CLARITY,URINE CLEAR; COLOR,URINE YELLOW; NITRITE,URINE NEGATIVE (NEG); PROTEIN,URINE NEGATIVE (NEG-TRACE); UROBILINOGEN,URINE 0.2 mg/dL (0.2 mg/dL)
[2020-04-06 13:02] LABS: BACTERIA,URINE FEW /HPF (0-FEW); RBC,URINE 0 /HPF (0-2); SQUAMOUS EPITHELIAL CELL,UR MANY /LPF; WBC,URINE OCC /HPF (0-4)
== END 2020-04-06 12:15 | disposition home or self-care (01) ==
LOC: ER 11:02
DX: R42 Dizziness and giddiness (principal); R53.1 Weakness; R11.0 Nausea; I10 Essential (primary) hypertension; F17.200 Nicotine dependence, unspecified, uncomplicated; Z87.442 Personal history of urinary calculi; Z98.890 Other specified postprocedural states; Z88.5 Allergy status to narcotic agent
CPT/HCPCS: 36415; 70450; 80053; 81001; 83735; 84443; 85025; 93005; 99285; J7030; J8597

== ENCOUNTER 2020-04-23 04:25 | Emergency (ER) | payer OTHER, MEDICAID ==
[~2020-04-23] VITALS: Ht 177.8 cm; Wt 70.0 kg
[~2020-04-23 04:25] MED LIST changes: +MECL-75 PO
[2020-04-23] MEDS ORDERED: IV NORMAL SALINE 1000ML BAG 1,000 ML IV SCH (04:35)
[2020-04-23] MEDS ORDERED: ONDANSETRON PF 4 MG/2 ML VIAL. IVP ONE (04:45)
[2020-04-23] MEDS ORDERED: SCOPOLAMINE 1.5MG PATCH. TD ONE (04:45)
--- NOTE | 2020-04-23 05:05 | PHYS DOC ---
Past Medical History Past Medical History: Hypertension, Kidney Stone Past Surgical History: , Other Additional Past Surgical Histo: HERNIA X 2, kidney stents Smoking Status: Current Every Day Smoker Alcohol Use: None Drug Use: None General Adult EDM: Chief Complaint: DIZZY/LIGHT HEADED HPI: HPI: Patient is a 74 year old female who presents with complaint of dizziness and headache. Patient was seen a little over 2 weeks ago for the same complaint and she states the meclizine is just not helping. She states that she now has a w orse headache and wonders if she might have a sinus infection. She does indicate that she does have some intermittent nausea associated with the dizziness. She states that she has difficulty sleeping because anytime she turns her head, the dizziness gets a lot worse and everything feels like it spinning, even when she closes her eyes. She rates the headache at a 6 out of 10. [] Review of Systems: Review of Systems: Constitutional: Denies fever or chills. [] Respiratory: Denies cough or shortness of breath. [] Cardiovascular: Denies chest pain or edema. [] GI: Denies abdominal pain, vomiting or diarrhea. [] Neurologic: Complains of headache and dizziness without focal weakness or sensory changes. [] A full 10 point review of systems has been reviewed and is otherwise negative Heart Score: Risk Factors: Risk Factors: DM, Current or recent (<one month) smoker, HTN, HLP, family history of CAD, obesity. Risk Scores: Score 0 - 3: 2.5% MACE over next 6 weeks - Discharge Home Score 4 - 6: 20.3% MACE over next 6 weeks - Admit for Clinical Observation Score 7 - 10: 72.7% MACE over next 6 weeks - Early Invasive Strategies Current Medications: Current Medications Medications (Trade) Dose Ordered Sig/Ester Start Time Stop Time Status Last Admin Dose Admin Lorazepam (Ativan Inj) 0.5 mg 1X ONCE 04/23/20 04:45 04/23/20 04:46 DC Ondansetron HCl (Zofran) 4 mg 1X ONCE 04/23/20 04:45 04/23/20 04:46 DC Scopolamine (Transderm-Scop) 1 patch 1X ONCE 04/23/20 04:45 04/23/20 04:46 DC Sodium Chloride 1,000 ml @ 1,000 mls/hr Q1H 04/23/20 04:35 04/23/20 05:34 Allergies: Allergies: Allergies Coded Allergies Type Severity Reaction Last Updated Verified codeine Adverse Reaction Mild Itching 04/05/18 Yes Physical Exam: PE: Constitutional: Well developed, well nourished, no acute distress, non-toxic appearance. [] HENT: Normocephalic, atraumatic, bilateral external ears normal, oropharynx moist, no oral exudates, nose normal. [] Eyes: PERRLA, EOMI, conjunctiva normal, no discharge. [] Neck: Normal range of motion, no tenderness, supple, no stridor. [] Cardiovascular: Regular rate and rhythm [] Lungs & Thorax: Bilateral breath sounds clear to auscultation [] Abdomen: Bowel sounds normal, soft, no tenderness. [] Skin: Warm, dry, no erythema, no rash. [] Extremities: No tenderness, no cyanosis, no clubbing, ROM intact, no edema. [] Neurologic: Alert and oriented X 3, no focal deficits noted. [] Current Patient Data: Vital Signs: Vital Signs Date Time Temp Pulse Resp B/P (MAP) Pulse Ox O2 Delivery O2 Flow Rate FiO2 04/23/20 04:32 97.6 68 16 154/87 (109) 96 Room Air 97.6 EKG: EKG: [] Radiology/Procedures: Radiology/Procedures: [] Course & Med Decision Making: Course & Med Decision Making Pertinent Labs and Imaging studies reviewed. (See chart for details) [] Dragon Disclaimer: Dragon Disclaimer: This electronic medical record was generated, in whole or in part, using a voice recognition dictation system. Departure Departure Impression: Primary Impression: Vertigo Additional Impression: Sinusitis Qualified Codes: J32.9 - Chronic sinusitis, unspecified Disposition: HOME, SELF-CARE Condition: STABLE Referrals: DICK WILSON MD (PCP) Patient Instructions: Sinusitis, Vertigo Scripts Scopolamine (TRANSDERM-SCOP) 1 Each Patch.td72 1 PATCH TP Q3DAYS PRN for DIZZINESS, #4 PATCH Prov: MENA MESA Jr. DO 04/23/20 Ondansetron (ONDANSETRON ODT) 4 Mg Tab.rapdis 1 TAB PO PRN Q6-8HRS PRN for NAUSEA, #15 TAB Prov: MENA MESA Jr. DO 04/23/20 Meclizine Hcl (MECLIZINE HCL) 25 Mg Tablet 25 MG PO PRN TID PRN for DIZZINESS, #30 TAB dizziness Prov: MENA MESA Jr. DO 04/23/20 Amoxicillin/Potassium Clav (AUGMENTIN 875-125 TABLET) 1 Each Tablet 1 TAB PO BID for 10 Days, #20 TAB 0 Refills Prov: MENA MESA Jr. DO 04/23/20 Justicifation of Admission Dx: Justifications for Admission: Justification of Admission Dx: N/A MENA MESA Jr. DO Apr 23, 2020 05:04
[2020-04-23 05:11] LABS: BASO # 0.1 x10^3/uL (0.0-0.2); BASO % 1 % (0-3); EOS # 0.2 x10^3/uL (0.0-0.7); EOS % 3 % (0-3); HEMATOCRIT 45.4 % (36.0-47.0); HEMOGLOBIN 15.3 g/dL (12.0-15.5); LYMPH # 2.9 x10^3/uL (1.0-4.8); LYMPH % 42 % (24-48); MEAN CORPUSCULAR HEMOGLOBIN 32 pg (25-35); MEAN CORPUSCULAR HGB CONC 34 g/dL (31-37); MEAN CORPUSCULAR VOLUME 94 fL (79-100); MONO # 0.4 x10^3/uL (0.0-1.1); MONO % 6 % (0-9); NEUT # 3.4 x10^3/uL (1.8-7.7); NEUT % 49 % (31-73); PLATELET COUNT 172 x10^3/uL (140-400); RED BLOOD COUNT 4.81 x10^6/uL (3.50-5.40); RED CELL DISTRIBUTION WIDTH 13.9 % (11.5-14.5); WHITE BLOOD COUNT 6.9 x10^3/uL (4.0-11.0)
[2020-04-23 05:23] LABS: CALCIUM 9.2 mg/dL (8.5-10.1); CREATININE 0.9 mg/dL (0.6-1.0); GFR 61.4
[2020-04-23 05:29] LABS: ALBUMIN 3.7 g/dL (3.4-5.0); TOTAL BILIRUBIN 0.3 mg/dL (0.2-1.0); TOTAL PROTEIN 7.5 g/dL (6.4-8.2)
[2020-04-23] MEDS ORDERED: AMOX1TAB61 PO (05:47)
[2020-04-23] MEDS ORDERED: SCOP1PAT11 TP (05:47)
[2020-04-23] MEDS ORDERED: MECL-75 PO (05:47)
[2020-04-23] MEDS ORDERED: ONDA4TAB12 PO (05:47)
[2020-04-23 05:56] VITALS: BP 148/60
--- NOTE | 2020-04-23 06:13 | RAD ---
INDICATION: Reason: dizziness; headache / Spl. Instructions: / History: COMPARISON: August 07, 2019 FINDINGS: Single view of chest obtained. Calcific atherosclerosis without enlargement of cardiac silhouette. Disorganized pulmonary markings are again seen bilaterally. No definite new region of focal airspace consolidation. Degenerative changes of the spine as well as the shoulders IMPRESSION: * No definite region of focal consolidation. * Disorganized pulmonary markings bilaterally which could be from chronic lung disease. Electronically signed by: Josue Stark MD (04/23/2020 6:10 AM) [id number]
== END 2020-04-23 06:09 | disposition home or self-care (01) ==
LOC: ER 04:25
DX: R55 Syncope and collapse (principal); J32.9 Chronic sinusitis, unspecified; I10 Essential (primary) hypertension; F17.200 Nicotine dependence, unspecified, uncomplicated; Z87.442 Personal history of urinary calculi; Z88.5 Allergy status to narcotic agent
CPT/HCPCS: 36415; 71045; 80053; 85025; 96361; 96374; 96375; 99284; J2060; J2405; J7030

== ENCOUNTER 2021-06-26 12:41 | Emergency (ER) | payer OTHER, MEDICAID ==
[~2021-06-26] VITALS: Ht 180.3 cm; Wt 65.9 kg
[~2021-06-26 12:41] MED LIST changes: +AMOX1TAB61 PO; -CIPR500T PO; +CIPR500T2 PO; +MECL12.582 PO; +ONDA4TAB12 PO; +SCOP1PAT11 TP
[2021-06-26 12:51] VITALS: BP 146/77
[2021-06-26] MEDS ORDERED: IV NORMAL SALINE 1000ML BAG 1,000 ML IV ONE (13:00)
--- NOTE | 2021-06-26 13:25 | PHYS DOC ---
Past Medical History Past Medical History: Hypertension, Kidney Stone Past Surgical History: , Other Additional Past Surgical Histo: HERNIA X 2, kidney stents Smoking Status: Current Every Day Smoker Alcohol Use: None Drug Use: None General Adult EDM: Chief Complaint: SYNCOPE HPI: HPI: Patient is a 75 year old female who presents via EMS 30 minutes after a syncopal episode that occurred while she was waiting at the bus stop. States she was standing up when she felt lightheaded prior to passing out. States her next memory is being aroused by EMS. She is unsure if she hit her head. She is complaining of a frontal headache currently. She was given a 500cc bolus of IVF by EMS. Reports a history of vertigo and states she has had previous syncopal episodes. Denies any fevers, chills, nausea, vomiting, chest pain, palpitations, or shortness of breath. Review of Systems: Review of Systems: Constitutional: Denies fever or chills Eyes: Denies redness or eye pain HENT: Denies nasal congestion or sore throat Respiratory: Denies cough or shortness of breath Cardiovascular: Denies chest pain or palpitations GI: Denies abdominal pain, nausea, or vomiting : Denies dysuria or hematuria Musculoskeletal: Denies back pain or joint pain Integument: Denies rash or skin lesions Neurologic: Reports syncopal episode and headache. Denies focal weakness or sensory changes Complete systems were reviewed and found to be within normal limits, except as documented in this note. Heart Score: C/O Chest Pain: N/A Current Medications: Current Medications Medications (Trade) Dose Ordered Sig/[facility] Start Time Stop Time Status Last Admin Dose Admin Sodium Chloride 1,000 ml @ 1,000 mls/hr 1X ONCE 06/26/21 13:00 06/26/21 13:59 Allergies: Allergies: Allergies Coded Allergies Type Severity Reaction Last Updated Verified codeine Adverse Reaction Mild Itching 04/05/18 Yes Physical Exam: PE: Constitutional: Well developed, well nourished, no acute distress, non-toxic appearance HENT: Normocephalic, atraumatic Eyes: PERRL, EOMI, conjunctiva normal, no discharge Neck: Normal range of motion, no midline tenderness, supple Lungs & Thorax: No respiratory distress, equal chest rise and fall Abdomen: Soft, no tenderness Skin: There is an avulsion injury to her right anterior thigh. Remainder of skin is warm, dry, and intact. Back: No tenderness, no CVA tenderness Extremities: No tenderness, ROM intact, no edema Neurologic: Alert and oriented X 3, normal motor function, normal sensory function, no focal deficits noted Psychologic: Affect normal, judgment normal EKG: EK: 73 BPM, normal sinus rhythm, T-wave inversions noted in leads V1-V5, QRS 124ms, QTc 460ms Radiology/Procedures: Radiology/Procedures: CT head without contrast 06/26/2021 2:11 PM INDICATION: Syncope COMPARISON: 05/07/2021 TECHNIQUE: Multiple axial CT images of the head were obtained from skull base through the vertex without intravenous contrast. FINDINGS: Head: Evaluation degraded by motion artifact. Ventricles, sulci and basal cisterns are within normal limits. There is no hydrocephalus. Alvarado-white matter differentiation is normal. There is no acute intracranial hemorrhage. There is no mass, mass effect or midline shift. Posterior fossa is normal in appearance. Remote lacunar infarct in the right putamen. Low-attenuation in the periventricular white matter is suggestive of chronic small vessel ischemic changes. Visualized portions of the orbits are normal. Paranasal sinuses are well aerated. Mastoid air cells are well aerated. Scalp and calvaria are normal. IMPRESSION: Evaluation degraded by motion artifact. No acute intracranial hemorrhage. Remote lacunar infarct identified in the right putamen. Low-attenuation in the periventricular white matter is suggestive of chronic small vessel ischemic changes. Electronically signed by: Evelin Jon MD (06/26/2021 2:24 PM) [id number] Course & Med Decision Making: Course & Med Decision Making 75 year old female presents following syncopal episode. Labs and imaging obtained and posted to chart. Patient reports improvement of symptoms after administration of 1L of IV Fluids. Patient stable for discharge with outpatient follow-up with PCP. Discussed findings and plan with patient, who acknowledges understanding and agreement. Cecilia Disclaimer: Cecilia Disclaimer: This electronic medical record was generated, in whole or in part, using a voice recognition dictation system. Departure Departure Impression: Primary Impression: Syncope Qualified Codes: R55 - Syncope and collapse Disposition: 01 HOME / SELF CARE / HOMELESS Condition: STABLE Referrals: DICK WILSON MD (PCP) Patient Instructions: Heat-Related Illness, Syncope, Ehns-md-Hurb Additional Instructions: Increase fluid hydration. CHRIS GARNICA DO Jun 26, 2021 13:25
[2021-06-26 13:30] LABS: BASO % 1 % (0-3); EOS # 0.1 x10^3/uL (0.0-0.7); EOS % 2 % (0-3); HEMATOCRIT 41.8 % (36.0-47.0); HEMOGLOBIN 14.3 g/dL (12.0-15.5); LYMPH # 1.2 x10^3/uL (1.0-4.8); LYMPH % 21 % (24-48); MEAN CORPUSCULAR HEMOGLOBIN 32 pg (25-35); MEAN CORPUSCULAR HGB CONC 34 g/dL (31-37); MEAN CORPUSCULAR VOLUME 94 fL (79-100); MONO # 0.4 x10^3/uL (0.0-1.1); MONO % 7 % (0-9); NEUT % 70 % (31-73); PLATELET COUNT 146 x10^3/uL (140-400); RED BLOOD COUNT 4.46 x10^6/uL (3.50-5.40); RED CELL DISTRIBUTION WIDTH 13.5 % (11.5-14.5); WHITE BLOOD COUNT 5.8 x10^3/uL (4.0-11.0)
[2021-06-26 13:36] LABS: CALCIUM 8.5 mg/dL (8.5-10.1); CREATININE 0.7 mg/dL (0.6-1.0); GFR 81.8; POTASSIUM 3.7 mmol/L (3.5-5.1)
[2021-06-26 13:42] LABS: ALBUMIN 3.3 g/dL (3.4-5.0); ALBUMIN/GLOBULIN RATIO 0.9 (1.0-1.7); MAGNESIUM 1.8 mg/dL (1.8-2.4); TOTAL BILIRUBIN 0.6 mg/dL (0.2-1.0); TOTAL PROTEIN 6.8 g/dL (6.4-8.2)
[2021-06-26 13:56] LABS: CREATINE KINASE 45 U/L (26-192)
--- NOTE | 2021-06-26 13:59 | EKG ---
[facility] [address] [place] [address] Test Date: 2021-06-26 Test Time: 13:05:10 Pat Name: QUEENIE GUERRA Department: Room: Gender: F Direct [employer] Intern: : 1945 Requested By: CHRIS GARNICA Order Number: [id number] Reading MD: Measurements Intervals [place] Rate: 73 P: 62 KS: 148 QRS: 49 QRSD: 124 T: 31 QT: 414 QTc: 460 Interpretive Statements SINUS RHYTHM RIGHT BUNDLE BRANCH BLOCK RVH WITH REPOLARIZATION ABNORMALITY QRS(T) CONTOUR ABNORMALITY CONSISTENT WITH INFERIOR INFARCT PROBABLY OLD ABNORMAL ECG RI6.01 No previous ECG available for comparison
--- NOTE | 2021-06-26 14:27 | RAD ---
RS Compliance Statement: One or more of the following individualized dose reduction techniques were utilized for this examinat ion: 1. Automated exposure control 2. Adjustment of the mA and/or kV according to patient size 3. Use of iterative reconstruction technique CT head without contrast 06/26/2021 2:11 PM INDICATION: Syncope COMPARISON: 05/07/2021 TECHNIQUE: Multiple axial CT images of the head were obtained from skull base through the vertex with out intravenous contrast. FINDINGS: Head: Evaluation degraded by motion artifact. Ventricles, sulci and basal cisterns are within normal limits. There is no hydrocephalus. Alvarado-white matter differentiation is normal. There is no acute intracranial hemorrhage. There is no mass, mass e ffect or midline shift. Posterior fossa is normal in appearance. Remote lacunar infarct in the right putamen. Low-attenuation in the periventricular white matter is suggestive of chronic small vessel is chemic changes. Visualized portions of the orbits are normal. Paranasal sinuses are well aerated. Mastoid air cells a re well aerated. Scalp and calvaria are normal. IMPRESSION: Evaluation degraded by motion artifact. No acute intracranial hemorrhage. Remote lacunar infarct identified in the right putamen. Low-attenuation in the periventricular white matter is suggestive of chronic small vessel ischemic ch anges. Electronically signed by: Evelin Jon MD (06/26/2021 2:24 PM) [id number]
[2021-06-26 15:33] LABS: BILIRUBIN,URINE NEGATIVE (NEG); CLARITY,URINE TURBID; COLOR,URINE YELLOW; NITRITE,URINE NEGATIVE (NEG); PROTEIN,URINE 30 mg/dL (NEG-TRACE)
[2021-06-26 15:53] LABS: BACTERIA,URINE MANY /HPF (0-FEW); RBC,URINE 0 /HPF (0-2)
== END 2021-06-26 17:37 | disposition home or self-care (01) ==
LOC: ER 12:41
DX: R55 Syncope and collapse (principal); R51.9 Headache, unspecified; I10 Essential (primary) hypertension; Z87.442 Personal history of urinary calculi; F17.200 Nicotine dependence, unspecified, uncomplicated
CPT/HCPCS: 36415; 70450; 80053; 81001; 82553; 83735; 84484; 85025; 93005; 96360; 96361; 99285; J7030; 87086

== ENCOUNTER 2021-10-20 17:33 | Emergency (ER) | payer OTHER, MEDICAID ==
[~2021-10-20] VITALS: Ht 180.3 cm; Wt 65.9 kg
[~2021-10-20 17:33] MED LIST changes: -SCOP1PAT11 TP; +SCOP1PAT12 TP
[2021-10-20] MEDS ORDERED: BISACODYL 5 MG TABLET.DR. PO STA (19:37)
[2021-10-20] MEDS ORDERED: ONDANSETRON ODT 4 MG TAB.RAPDIS. PO ONE (19:45)
[2021-10-20] MEDS ORDERED: MAGNESIUM CITRATE 296 ML SOLUTION. PO ONE (19:45)
--- NOTE | 2021-10-20 20:22 | RAD ---
EXAMINATION: XR ABDOMEN 2V CLINICAL HISTORY: Abdominal pain, constipation TECHNIQUE: XR ABDOMEN 2V COMPARISON: None FINDINGS/ IMPRESSION: Nonspecific nonobstructive bowel gas pattern. No evidence of significant colonic stool retention or p neumoperitoneum. Pelvic phleboliths. Thoracolumbar degenerative changes. Electronically signed by: Yuriy Morejon DO (10/20/2021 8:19 PM) VIVIEN
[2021-10-20] MEDS ORDERED: cloNIDine HCL 0.1 MG TABLET PO ONE (20:45)
--- NOTE | 2021-10-20 20:46 | PHYS DOC ---
Past Medical History Past Medical History: Hypertension, Kidney Stone Additional Past Medical Histor: VERTIGO Past Surgical History: , Other Additional Past Surgical Histo: HERNIA X 2, kidney stents Smoking Status: Current Every Day Smoker Additional Information: 1 PPD Alcohol Use: None Drug Use: None General Adult EDM: Chief Complaint: ABDOMINAL PAIN HPI: HPI: Patient is a 76 year old female with history of uncontrolled hypertension who presents to the ED today complaining of constipation. Patient states she has not had a bowel movement for 3 days. She states she has had this problem before. Denies anything specific causing her constipation. She states she has not tried anything to help have a bowel movement. She states she feels bloated. Denies any nausea, vomiting. Review of Systems: Review of Systems: Constitutional: Denies fever or chills. [] Eyes: Denies change in visual acuity. [] HENT: Denies nasal congestion or sore throat. [] Respiratory: Denies cough or shortness of breath. [] Cardiovascular: Denies chest pain or edema. [] GI: Reports constipation, denies nausea, vomiting, bloody stools or diarrhea. [] : Denies dysuria. [] Musculoskeletal: Denies back pain or joint pain. [] Integument: Denies rash. [] Neurologic: Denies headache, focal weakness or sensory changes. [] ] Psychiatric: Denies depression or anxiety. [] Heart Score: C/O Chest Pain: N/A Risk Factors: Risk Factors: DM, Current or recent (<one month) smoker, HTN, HLP, family history of CAD, obesity. Risk Scores: Score 0 - 3: 2.5% MACE over next 6 weeks - Discharge Home Score 4 - 6: 20.3% MACE over next 6 weeks - Admit for Clinical Observation Score 7 - 10: 72.7% MACE over next 6 weeks - Early Invasive Strategies Current Medications: Current Medications Medications (Trade) Dose Ordered Sig/Ester Start Time Stop Time Status Last Admin Dose Admin Bisacodyl (Dulcolax Tab) 10 mg 1X STAT 10/20/21 19:37 10/20/21 19:42 DC 10/20/21 20:22 10 MG Magnesium Citrate (Citroma) 296 ml 1X ONCE 10/20/21 19:45 10/20/21 19:46 DC 10/20/21 20:22 296 ML Ondansetron HCl (Zofran Odt) 4 mg 1X ONCE 10/20/21 19:45 10/20/21 19:46 DC 10/20/21 20:21 4 MG Allergies: Allergies: Allergies Coded Allergies Type Severity Reaction Last Updated Verified codeine Adverse Reaction Mild Itching 04/05/18 Yes Physical Exam: PE: Constitutional: Well developed, well nourished, no acute distress, non-toxic appearance. [] HENT: Normocephalic, atraumatic, bilateral external ears normal, oropharynx moist, no oral exudates, nose normal. [] Eyes: PERRLA, EOMI, conjunctiva normal, no discharge. [] Neck: Normal range of motion, no tenderness, supple, no stridor. [] Cardiovascular:Heart rate regular rhythm, no murmur [] Lungs & Thorax: Bilateral breath sounds clear to auscultation [] Abdomen: Round abdomen, bowel sounds normal, soft, no tenderness, no masses, no pulsatile masses. [] Skin: Warm, dry, no erythema, no rash. [] Back: No tenderness, no CVA tenderness. [] Extremities: No tenderness, no cyanosis, no clubbing, ROM intact, no edema. [] Neurologic: Alert and oriented X 3, normal motor function, normal sensory function, no focal deficits noted. [] Psychologic: Affect normal, judgement normal, mood normal. [] Current Patient Data: Vital Signs: Vital Signs Date Time Temp Pulse Resp B/P (MAP) Pulse Ox O2 Delivery O2 Flow Rate FiO2 10/20/21 19:00 69 18 191/100 (130) 95 10/20/21 17:43 Room Air 10/20/21 17:33 97.9 97.9 EKG: EKG: [] Radiology/Procedures: Radiology/Procedures: []PROCEDURE: ABDOMEN SUPINE & UPRIGHT EXAMINATION: XR ABDOMEN 2V CLINICAL HISTORY: Abdominal pain, constipation TECHNIQUE: XR ABDOMEN 2V COMPARISON: None FINDINGS/ IMPRESSION: Nonspecific nonobstructive bowel gas pattern. No evidence of significant colonic stool retention or pneumoperitoneum. Pelvic phleboliths. Thoracolumbar degenerative changes. Electronically signed by: Yuriy Benson DO (10/20/2021 8:19 PM) [facility] DICTATED and SIGNED BY: YURIY BENSON DO DATE: 10/20/[id number] 0 Course & Med Decision Making: Course & Med Decision Making Pertinent Labs and Imaging studies reviewed. (See chart for details) This is a 76-year-old female patient presenting to the ED today complaining of constipation for 3 days. Patient had a bowel movement in the ED per her statement " I felt like I had a baby through my rectum". Abdomen supine and u pright x-rays were obtained unfortunately after her bowel movement which did not show any significant stool retention. Her blood pressure was 193/104 HR in the 70s, she states she has history of hypertension and does not take any medicines. She states she does not know why she does not take blood pressure medicine but she has a primary care doctor. She has no headache chest pain or shortness of breath. She was given clonidine in the ED. I requested her to contact her PCP tomorrow morning and set up a follow-up appointment for blood pressure management. We discussed constipation prevention and treatment Dragon Disclaimer: Dragon Disclaimer: This electronic medical record was generated, in whole or in part, using a voice recognition dictation system. Departure Departure Impression: Primary Impression: Constipation Qualified Codes: K59.00 - Constipation, unspecified Additional Impression: Hypertension Qualified Codes: I10 - Essential (primary) hypertension Disposition: HOME / SELF CARE / HOMELESS Condition: STABLE Referrals: DICK WILSON MD (PCP) call her office tomorrow and set up a follow up appointment Patient Instructions: Constipation, Adult, Hypertension Additional Instructions: You were evaluated for constipation. Please increase your dietary fiber intake, increase your water intake, take MiraLAX every day to help reduce incidence of constipation. Anytime you are constipated consider taking magnesium citrate. Your blood pressure was 191/104. This is very high. Contact your doctor tomorrow morning and set up a follow-up appointment for blood pressure management NEGRITA VAUGHAN APRN Oct 20, 2021 20:46
[2021-10-20 21:12] VITALS: BP 160/93
== END 2021-10-20 21:12 | disposition home or self-care (01) ==
LOC: ER 17:33
DX: K59.00 Constipation, unspecified (principal); I10 Essential (primary) hypertension; F17.200 Nicotine dependence, unspecified, uncomplicated; Z88.5 Allergy status to narcotic agent
CPT/HCPCS: 74021; 99285-25

== ENCOUNTER 2021-10-20 22:58 | Emergency (ER) | payer OTHER, MEDICAID ==
[~2021-10-20] VITALS: Ht 167.6 cm; Wt 67.0 kg
[2021-10-20] MEDS ORDERED: IV NORMAL SALINE 1000ML BAG 1,000 ML IV ONE (23:30)
--- NOTE | 2021-10-21 00:22 | PHYS DOC ---
Past Medical History Past Medical History: Hypertension, Kidney Stone Additional Past Medical Histor: VERTIGO (NEGRITA VAUGHAN COMMUNICATIONS MAINTAINER) Past Surgical History: , Other Additional Past Surgical Histo: HERNIA X 2, kidney stents (NEGRITA VAUGHAN COMMUNICATIONS MAINTAINER) Smoking Status: Current Every Day Smoker Alcohol Use: None Drug Use: None (NEGRITA VAUGHAN COMMUNICATIONS MAINTAINER) General Adult EDM: Chief Complaint: NAUSEA/VOMITING/DIARRHEA HPI: HPI: Patient is a 76 year old female with history of hypertension who is back in the ED after being evaluated today for constipation. Patient was discharged after having a bowel movement. She did not have a ride home, she is waiting for coverage in the waiting room when she complained of "feeling sick". I went to the waiting room to talk to patient. She is slouched over in the cart stating "I am dying". On asking her what symptoms she has, she states she is feeling sick. On asking her does she have nausea her answer was yes, do you have abdominal pain her answer was yes, do have a headache her answer was yes, you do have chest pain her answer was yes. On asking do you have all the symptoms i have mentioned she states he has "all the above" and she goes further to state "i want to go back to the hospital". She has been unable to rate or describe her pain. (NEGRITA VAUGHAN COMMUNICATIONS MAINTAINER) Review of Systems: Review of Systems: Constitutional: Denies fever or chills. [] Eyes: Denies change in visual acuity. [] HENT: Denies nasal congestion or sore throat. [] Respiratory: Denies cough or shortness of breath. [] Cardiovascular: Reports chest pain GI: Reports abdominal pain, nausea. : Denies dysuria. [] Musculoskeletal: Denies back pain or joint pain. [] Integument: Denies rash. [] Neurologic: Reports headache, denies focal weakness or sensory changes. [] Psychiatric: Denies depression or anxiety. [] (NEGRITA VAUGHAN COMMUNICATIONS MAINTAINER) Heart Score: C/O Chest Pain: N/A Risk Factors: Risk Factors: DM, Current or recent (<one month) smoker, HTN, HLP, family history of CAD, obesity. Risk Scores: Score 0 - 3: 2.5% MACE over next 6 weeks - Discharge Home Score 4 - 6: 20.3% MACE over next 6 weeks - Admit for Clinical Observation Score 7 - 10: 72.7% MACE over next 6 weeks - Early Invasive Strategies (NEGRITA VAUGHAN COMMUNICATIONS MAINTAINER) Current Medications: Current Medications Medications (Trade) Dose Ordered Sig/Ester Start Time Stop Time Status Last Admin Dose Admin Sodium Chloride 1,000 ml @ 1,000 mls/hr 1X ONCE 10/20/21 23:30 10/21/21 00:29 (NEGRITA VAUGHAN COMMUNICATIONS MAINTAINER) Allergies: Allergies: Allergies Coded Allergies Type Severity Reaction Last Updated Verified codeine Adverse Reaction Mild Itching 04/05/18 Yes (NEGRITA VAUGHAN COMMUNICATIONS MAINTAINER) Physical Exam: PE: Constitutional: Diaphoretic. Well developed, well nourished, no acute distress, non-toxic appearance. [] HENT: Normocephalic, atraumatic, bilateral external ears normal, oropharynx moist, no oral exudates, nose normal. [] Eyes: PERRLA, EOMI, conjunctiva normal, no discharge. [] Neck: Normal range of motion, no tenderness, supple, no stridor. [] Cardiovascular:Heart rate regular rhythm, no murmur [] Lungs & Thorax: Bilateral breath sounds clear to auscultation [] Abdomen: Bowel sounds normal, soft, tenderness diffusely throughout the abdomen, no masses, no pulsatile masses. [] Skin: Warm, dry, no erythema, no rash. [] Back: No tenderness, no CVA tenderness. [] Extremities: No tenderness, no cyanosis, no clubbing, ROM intact, no edema. [] Neurologic: Alert and oriented X 3, normal motor function, normal sensory function, no focal deficits noted. Cranial nerves II through XII intact Psychologic: Flat affect, restless (NEGRITA VAUGHAN COMMUNICATIONS MAINTAINER) Current Patient Data: Labs: Laboratory Tests Test 10/20/21 23:03 Glucose (Fingerstick) 133 mg/dL (70-99) H (NEGRITA VAUGHAN COMMUNICATIONS MAINTAINER) EKG: EK interpreted by Dr. Sheth sinus rhythm with right bundle branch block inverted T waves on V1, V2, V3. No STEMI. EKG similar to the one done June 26, 2021 (CLEMENTNEGRITA Augustin COMMUNICATIONS MAINTAINER) Radiology/Procedures: Radiology/Procedures: [] (NEGRITA VAUGHAN APRN) Impression: [facility] [address] [place] [address] IMAGING REPORT Signed PATIENT: QUEENIE GUERRA ACCOUNT: [id number] : 1945 LOCATION: ER AGE: 76 SEX: F EXAM STATUS: REG ER ORD. PHYSICIAN: NEGRITA VAUGHAN APRN REASON: nausea, headache PROCEDURE: CT HEAD WO CONTRAST INDICATION: Reason: nausea, headache / Spl. Instructions: / History: COMPARISON: June 26, 2021 TECHNIQUE: Axial CT images obtained through the head without intravenous contrast. One or more of the following individualized dose reduction techniques were utilized for this examination: 1. Automated exposure control; 2. Adjustment of the mA and/or kV according to patient size; 3. Use of iterative reconstruction technique. FINDINGS: No intracranial hemorrhage. No significant midline shift. Ventricles and sulci are globally prominent. Scattered foci of low attenuation within the white matter. IMPRESSION: * No acute intracranial hemorrhage. * Scattered regions of low attenuation within the white matter. Non-specific in nature but a common finding and frequently secondary to small vessel ischemic disease. Electronically signed by: Josue Ingram MD (10/21/2021 2:47 AM) [id number] DICTATED and SIGNED BY: JOSUE INGRAM MD DATE: 10/21/21 [id number] [facility] [address] [place] [address] IMAGING REPORT Signed PATIENT: QUEENIE GUERRA ACCOUNT: [id number] : 1945 LOCATION: ER AGE: 76 SEX: F EXAM STATUS: REG ER ORD. PHYSICIAN: NEGRITA VAUGHAN APRN REASON: nausea, headache abd pain;OMNI 300, 75ML PROCEDURE: CT CHEST ABD PELVIS W/CONTRAST INDICATION: Reason: nausea, headache abd pain;OMNI 300, 75ML / Spl. Instructions: / History: . COMPARISON: CT chest July 2019 and abdomen March 2018 TECHNIQUE: Axial CT images obtained through the chest, abdomen and pelvis with contrast. One or more of the following individualized dose reduction techniques were utilized for this examination: 1. Automated exposure control; 2. Adjustment of the mA and/or kV according to patient size; 3. Use of iterative reconstruction technique. FINDINGS: Chest: No focal airspace consolidation to suggest pneumonia. Coronary artery calcific atherosclerosis. Mildly prominent lymph node precarinal region measuring 10 mm short axis again seen. Calcific atherosclerosis. Ascending thoracic aorta measures up to about 40 mm. Degenerative changes the spine with multilevel central canal and neural foraminal stenosis. Osseous demineralization. Scoliotic curvature of spine. Abdomen and pelvis: Atherosclerotic disease throughout the vasculature. Soft tissue density in the bilateral groin abutting the inguinal canal again seen measuring up to 2 cm on the right. This was also present on prior therefore likely benign finding. No intrahepatic bile duct dilation. Liver is prominent in size. No peripancreatic fluid collection. Spleen is unremarkable. Nonobstructive left renal stones. There is a couple of nonobstructive left renal stones measuring up to about 3 mm. Prominence of the left extrarenal pelvis. Urinary bladder is partially distended. Uterus is seen. Colonic wall thickening is identified most severe at the right side of the colon and transverse with adjacent edema to the fat. Appendix is partially seen measuring approximately 6 mm. There is also some wall thickening of the rectosigmoid region with adjacent edema to the fat. Degenerative changes throughout the spine with scoliotic curvature with multilevel central canal and neural foraminal stenosis. Degenerative changes of the bilateral hips. Minimal wedging of T5 vertebral body. IMPRESSION: * Wall thickening of the colon with adjacent edema to the fat which could be from causes such as colitis. Follow-up could be obtained to ensure this resolves to exclude any persistent thickening to ensure there is no colonic mass if the patient has not had a recent colonoscopy. Electronically signed by: Josue Ingram MD (10/21/2021 3:11 AM) [id number] DICTATED and SIGNED BY: JOSUE INGRAM MD DATE: 10/21/21 [id number] 0 (CHLOE SHETH MD) Course & Med Decision Making: Course & Med Decision Making Pertinent Labs and Imaging studies reviewed. (See chart for details) This is a 76-year-old female patient back in the ED after being evaluated earlier for constipation, she was discharged and was in the waiting room decided to check back in complaining of feeling sick. See HPI. Vitals temperature 96.0, heart rate 76, respiration 19, blood pressure 135/76, O2 sats 94% She went to her room and immediately had a large bowel movement. She is currently resting in her bed in no distress. [address] Sheth. Pending CT head, CTA chest abdomen pelvis, lab work EKG. (NEGRITA VAUGHAN COMMUNICATIONS MAINTAINER) Course & Med Decision Making Received patient in signout. Reviewed history and exam as above. Work-up as ordered by COMMUNICATIONS MAINTAINER showed negative troponin, reassuring CMP, no leukocytosis. CT chest/abdomen/pelvis showed pancolitis. No leukocytosis, fever/chills to suggest bacterial colitis. No hematochezia to suggest ischemic colitis. Reevaluated the patient, and she is now feeling much improved. Requesting to go home. I disclose the CT findings, and asked that she return to the emergency department if she had bloody stools or high fevers. I asked that she follow-up with her PCP to ensure that colonic thickening improves, and stated there is a chance there could be an underlying malignancy. She voices understanding that she will require repeat evaluation and potential further work-up including a colonoscopy. (CHLOE SHETH MD) Dragon Disclaimer: Dragon Disclaimer: This electronic medical record was generated, in whole or in part, using a voice recognition dictation system. (NEGRITA VAUGHAN APRN) Departure Departure Impression: Primary Impression: Nausea Additional Impressions: Diarrhea Pancolitis Disposition: HOME / SELF CARE / HOMELESS Condition: IMPROVED Referrals: DICK WILSON MD (PCP) Patient Instructions: Colitis Additional Instructions: Please return to the emergency department if you have high fevers, severe a bdominal pain, or blood in your stool. Please also return to the emergency department if you feel you are unable to care for yourself at home or stay well-hydrated. Otherwise, please follow-up with your PCP this week to ensure your symptoms are improving. Your CT did show thickening of the colon wall, that will need to be followed up to ensure that you do not have an underlying process such as colon cancer. NEGRITA VAUGHAN APRN Oct 21, 2021 00:22 CHLOE SHETH MD Oct 21, 2021 03:10
[2021-10-21 01:10] LABS: BASO % 0 % (0-3); EOS # 0.1 x10^3/uL (0.0-0.7); EOS % 1 % (0-3); HEMOGLOBIN 14.4 g/dL (12.0-15.5); LYMPH # 1.6 x10^3/uL (1.0-4.8); LYMPH % 17 % (24-48); MEAN CORPUSCULAR HEMOGLOBIN 31 pg (25-35); MEAN CORPUSCULAR HGB CONC 34 g/dL (31-37); MEAN CORPUSCULAR VOLUME 93 fL (79-100); MONO # 0.5 x10^3/uL (0.0-1.1); MONO % 6 % (0-9); NEUT # 7.2 x10^3/uL (1.8-7.7); NEUT % 77 % (31-73); PLATELET COUNT 163 x10^3/uL (140-400); RED CELL DISTRIBUTION WIDTH 13.9 % (11.5-14.5); WHITE BLOOD COUNT 9.4 x10^3/uL (4.0-11.0)
[2021-10-21 01:23] LABS: CALCIUM 8.6 mg/dL (8.5-10.1); CREATININE 0.8 mg/dL (0.6-1.0); GFR 69.9
[2021-10-21 01:29] LABS: ALBUMIN 3.3 g/dL (3.4-5.0); MAGNESIUM 2.1 mg/dL (1.8-2.4); TOTAL BILIRUBIN 0.6 mg/dL (0.2-1.0); TOTAL PROTEIN 6.7 g/dL (6.4-8.2)
--- NOTE | 2021-10-21 02:49 | RAD ---
INDICATION: Reason: nausea, headache / Spl. Instructions: / History: COMPARISON: June 26, 2021 TECHNIQUE: Axial CT images obtained through the head without intravenous contrast. One or more of the following individualized dose reduction techniques were utilized for this examinat ion: 1. Automated exposure control; 2. Adjustment of the mA and/or kV according to patient size; 3 . Use of iterative reconstruction technique. FINDINGS: No intracranial hemorrhage. No significant midline shift. Ventricles and sulci are globally prominent. Scattered foci of low attenuation within the white matter. IMPRESSION: * No acute intracranial hemorrhage. * Scattered regions of low attenuation within the white matter. Non-specific in nature but a common finding and frequently secondary to small vessel ischemic disease. Electronically signed by: Josue Stark MD (10/21/2021 2:47 AM) [id number]
--- NOTE | 2021-10-21 03:14 | RAD ---
INDICATION: Reason: nausea, headache abd pain;OMNI 300, 75ML / Spl. Instructions: / History: . COMPARISON: CT chest July 2019 and abdomen March 2018 TECHNIQUE: Axial CT images obtained through the chest, abdomen and pelvis with contrast. One or more of the following individualized dose reduction techniques were utilized for this examinat ion: 1. Automated exposure control; 2. Adjustment of the mA and/or kV according to patient size; 3 . Use of iterative reconstruction technique. FINDINGS: Chest: No focal airspace consolidation to suggest pneumonia. Coronary artery calcific atherosclerosis. Mildly prominent lymph node precarinal region measuring 10 mm short axis again seen. Calcific atherosclerosis. Ascending thoracic aorta measures up to about 40 mm. Degenerative changes the spine with multilevel central canal and neural foraminal stenosis. Osseous d emineralization. Scoliotic curvature of spine. Abdomen and pelvis: Atherosclerotic disease throughout the vasculature. Soft tissue density in the bilateral groin abutting the inguinal canal again seen measuring up to 2 c m on the right. This was also present on prior therefore likely benign finding. No intrahepatic bile duct dilation. Liver is prominent in size. No peripancreatic fluid collection. Spleen is unremarkable. Nonobstructive left renal stones. There is a couple of nonobstructive left renal stones measuring up to about 3 mm. Prominence of the left extrarenal pelvis. Urinary bladder is partially distended. Uterus is seen. Colonic wall thickening is identified most severe at the right side of the colon and transverse with adjacent edema to the fat. Appendix is partially seen measuring approximately 6 mm. There is also some wall thickening of the rectosigmoid region with adjacent edema to the fat. Degenerative changes throughout the spine with scoliotic curvature with multilevel central canal and neural foraminal stenosis. Degenerative changes of the bilateral hips. Minimal wedging of T5 vertebral body. IMPRESSION: * Wall thickening of the colon with adjacent edema to the fat which could be from causes such as col itis. Follow-up could be obtained to ensure this resolves to exclude any persistent thickening to ens ure there is no colonic mass if the patient has not had a recent colonoscopy. Electronically signed by: Josue Stark MD (10/21/2021 3:11 AM) [id number]
[2021-10-21 04:13] VITALS: BP 123/59
--- NOTE | 2021-10-21 04:37 | EKG ---
[facility] [address] [place] [address] Test Date: 2021-10-20 Test Time: 23:09:36 Pat Name: QUEENIE GUERRA Department: Room: Gender: F Bilingual [employer] Processor: : 1945 Requested By: NEGRITA VAUGHAN Order Number: [id number] Reading MD: Juan Orantes Measurements Intervals [place] Rate: 69 P: 61 TN: 148 QRS: 66 QRSD: 124 T: 55 QT: 434 QTc: 467 Interpretive Statements SINUS RHYTHM RIGHT BUNDLE BRANCH BLOCK Electronically Signed On 10-23-2021 12:55:[address] OPERATIONS CLERK by Juan Orantes
--- NOTE | 2021-10-21 17:11 | NUR ---
IP: Attempted to contact pt concerning covid results. No answer, left a voicemail to return the call.
== END 2021-10-21 04:14 | disposition home or self-care (01) ==
LOC: ER 22:58
DX: K51.00 Ulcerative (chronic) pancolitis without complications (principal); Z20.822 Contact with and (suspected) exposure to COVID-19; I10 Essential (primary) hypertension; F17.200 Nicotine dependence, unspecified, uncomplicated
CPT/HCPCS: 36415; 70450; 71260; 74177; 80053; 82962; 83690; 83735; 83880; 84443; 84484; 85025; 85610; 85730; 87426; 93005; 96360; 99285; J7030; U0003; U0005

== ENCOUNTER 2022-01-09 16:07 | Emergency (ER) | payer OTHER, MEDICAID ==
[~2022-01-09] VITALS: Ht 177.8 cm; Wt 66.0 kg
--- NOTE | 2022-01-09 17:07 | PHYS DOC ---
Past Medical History Past Medical History: Hypertension, Kidney Stone Additional Past Medical Histor: vertigo (CHRIS GARNICA DO) Additional Past Surgical Histo: HERNIA X 2, kidney stents (CHRIS GARNICA DO) Smoking Status: Current Every Day Smoker Additional Information: 1 ppd x 60 years Alcohol Use: None Drug Use: None (CHRIS GARNICA DO) General Adult EDM: Chief Complaint: MECHANICAL FALL HPI: HPI: Patient is a 76 year old F who presents with report of headache and dizziness. Patient reports progressively worsening and increasing frequency of dizziness that is accompanied by diffuse pressure since slipping on ice on 01/02/2022. Patient reports landing on her hips and hitting her head. Denies LOC. She also reports that she has a sensation of the "room spinning". patient reports using ice packs and taking Advil with temporary relief. Patient reports any activity aggravates the headaches and is worst when getting up from a supine or seated position. Patient also reports pain to left lower back and right hip that she describes as soreness. Patient rates hip and back pain a 8/10. Patient reports a friend came over and gave her massage and applied icy-hot to her back and hip which provided temporary relief. (CHRIS GARNICA DO) Review of Systems: Review of Systems: Constitutional: Denies fever or chills. Eyes: Denies redness or eye pain. HENT: Denies nasal congestion or sore throat. Respiratory: Denies cough or shortness of breath. Cardiovascular: Denies chest pain or palpitations. GI: Denies abdominal pain, nausea, or vomiting. : Denies dysuria or hematuria. Musculoskeletal: Reports right-sided hip pain and low back pain Integument: Denies rash or skin lesions. Neurologic: Reports diffuse, pressure-like headache. Denies focal weakness or sensory changes. Complete systems were reviewed and found to be within normal limits, except as documented in this note. (CHRIS GARNICA DO) Heart Score: C/O Chest Pain: N/A (CHRIS GARNICA DO) Allergies: Allergies: Allergies Coded Allergies Type Severity Reaction Last Updated Verified codeine Adverse Reaction Mild Itching 04/05/18 Yes (CHRIS GARNICA DO) Physical Exam: PE: Constitutional: Well developed, well nourished, mild distress, non-toxic appearance HENT: Normocephalic, bruising to base of occiput. Eyes: PERRL, EOMI, conjunctiva normal, no discharge, no nystagmus Neck: Normal range of motion, no tenderness, supple. Lungs & Thorax: No respiratory distress, equal chest rise and fall Abdomen: Soft, no tenderness; pelvis stable and nontender Skin: Warm, dry, no erythema, no rash. Back: No CVA tenderness, tenderness to palpation of left lower sacral area. Extremities: ROM of right hip limited due to pain, no edema, point tenderness on palpation of right greater trochanter. Neurologic: Alert and oriented X 3, normal motor function, normal sensory function, no focal deficits noted. Psychologic: Affect normal, judgment normal. (CHRIS GARNICA DO) Current Patient Data: Vital Signs: Vital Signs Date Time Temp Pulse Resp B/P (MAP) Pulse Ox O2 Delivery O2 Flow Rate FiO2 01/09/22 16:10 98.1 72 18 182/92 (122) 96 Room Air 98.1 (CHRIS GARNICA DO) EKG: EKG: @16:17:44 : NSR with rate of 71. no ST elevations. RBBB. DC 148ms. QRS 130ms. QT/QTc 424/466. (CHRIS GARNICA DO) Radiology/Procedures: Radiology/Procedures: IMAGING REPORT Signed PATIENT: QUEENIE GUERRA ACCOUNT: [id number] : 1945 LOCATION: ER AGE: 76 SEX: F EXAM STATUS: REG ER ORD. PHYSICIAN: CHRIS GARNICA DO REASON: headache, dizziness, pain s/p fall PROCEDURE: CT HEAD AND CERVICAL SPINE WO Exam: CT head and cervical spine without contrast INDICATION: Headache, dizziness TECHNIQUE: Sequential axial images through the head and cervical spine were obtained without the administration of IV contrast. Exposure: One or more of the following in the visualized dose reduction techniques were utilized for this examination: 1. Automated exposure control 2. Adjustment of the MA and/or KV according to patient size 3. Use of iterative of reconstructive technique Comparisons: None FINDINGS: Head: No focal parenchymal lesion or hemorrhage is identified. There is no midline sh ift or sulcal effacement. Patchy hypodensity in the periventricular white matter, similar prior study. No acute vascular territory infarction is identified. Alvarado-white distinction is preserved. The ventricular system is within normal limits without compression hydrocephalus. The basal cisterns are well maintained. The visualized portions of the paranasal sinuses and mastoid air cells are well- pneumatized. No acute fractures. Cervical spine: Straightening of cervical spine which may positional. Vertebral body heights are well-maintained. Fracture to the cervical spine is identified. Multilevel spondylotic change in cervical spine with degenerative disease greatest at C5-C6 and C6-C7. Mild bilateral facet arthropathy is noted in cervical spine. Visualized paraspinal soft tissues are unremarkable. IMPRESSION: 1. No acute intracranial abnormality. 2. Negative CT C-spine for acute traumatic injury Electronically signed by: Mitesh Park MD (01/09/2022 6:29 PM) [facility] DICTATED and SIGNED BY: MITESH PARK MD DATE: 01/09/[id number] 0 IMAGING REPORT Signed PATIENT: QUEENIE GUERRA ACCOUNT: [id number] : 1945 LOCATION: ER AGE: 76 SEX: F EXAM STATUS: REG ER ORD. PHYSICIAN: CHRIS GARNICA DO REASON: pain s/p fall PROCEDURE: HIP RIGHT 2V WITH PELVIS Exam: Right hip 2 views INDICATION: Pain status post fall TECHNIQUE: Frontal view of pelvis with frontal and frog-leg lateral views of the right hip Comparisons: None FINDINGS: Diffuse osteopenia. No acute or healed fractures. Soft tissues are unremarkable. Joint spaces are well-maintained. IMPRESSION: No displaced fracture in the setting of diffuse osteopenia. Electronically signed by: Mitesh Park MD (01/09/2022 7:44 PM) [facility] DICTATED and SIGNED BY: MITESH PARK MD DATE: 01/09/[id number] 0 IMAGING REPORT Signed PATIENT: QUEENIE GUERRA ACCOUNT: [id number] : 1945 LOCATION: ER AGE: 76 SEX: F EXAM STATUS: REG ER ORD. PHYSICIAN: CHRIS GARNICA DO REASON: pain s/p fall PROCEDURE: SACRUM & COCCYX 3V Exam: Sacrum 2 views INDICATION: Pain status post fall TECHNIQUE: Frontal and lateral views of the sacrum and coccyx Comparisons: None FINDINGS: Diffuse osteopenia. No displaced fracture identified. Soft tissues are unremarkable. Joint spaces are well-maintained. IMPRESSION: No acute fracture identified in the setting of diffuse osteopenia. Electronically signed by: Mitesh Park MD (01/09/2022 7:48 PM) [facility] DICTATED and SIGNED BY: MITESH PARK MD DATE: 01/09/22 [id number] (LORRI DAMIAN DO) Course & Med Decision Making: Course & Med Decision Making Pertinent Labs and Imaging studies reviewed. (See chart for details) Patient presents with intractable dizziness and mechanical fall. Labs obtained and pending at this time. Imaging also pending. Patient given meclizine and 1 L fluids. Pain also addressed. @1800 sign-out given to Dr. Damian for further evaluation and treatment. Discussed current findings and plan with patient, who acknowledges understanding and agreement. (CHRIS GARNICA DO) Course & Med Decision Making This patient was initially seen by Dr. Garnica. I assumed care 1800. CT imaging and laboratory exams were pending at that time. CT imaging returned unremarkable. Laboratory exams are unremarkable. She had been given a dose of meclizine. She admits to having chronic and recurrent vertigo symptoms. She feels much better and that regard. She denies active dizziness or vertigo symptoms. She admits to having chronic headaches, which have been present for many years. She is complaining of a mild diffuse headache, which feels just like her usual headache symptoms. No radiographic findings of acute intracranial abnormality. She has a nonfocal neurologic exam. I offered to gi ve her Tylenol or ibuprofen for pain, which she declines. I told her to contact her PCP for follow-up. I also gave her information for outpatient neurology follow-up here as well. She feels comfortable to plan for discharge home. Strict return precautions are given. (LORRI DAMIAN DO) Dragon Disclaimer: Dragon Disclaimer: This electronic medical record was generated, in whole or in part, using a voice recognition dictation system. (CHRIS GARNICA DO) Departure Departure Impression: Primary Impression: Fall Qualified Codes: W19.XXXA - Unspecified fall, initial encounter Additional Impressions: Headache Qualified Codes: R51.9 - Headache, unspecified Dizziness Disposition: HOME / SELF CARE / HOMELESS Condition: STABLE Referrals: DICK WILSON MD (PCP) JULIEN GUERRERO MD Patient Instructions: Benign Positional Vertigo, General Headache Without Cause, Vertigo, [id number] Additional Instructions: Please return to the ER if you have any new injury or trauma, if you develop more severe uncontrolled headache pain, if you develop uncontrolled vomiting, dehydration, focal weakness, numbness or tingling, chest pain, shortness of breath, temperature 100.4 or higher or for any other concerns. You may take up the counter Tylenol or ibuprofen as needed for headache pain. Use the meclizine as needed for your dizzy symptoms. Please contact your primary care doctor to discuss this issue further. You are given information for outpatient follow-up with neurology here as well. Scripts Meclizine Hcl (MECLIZINE HCL) 25 Mg Tablet 25 MG PO PRN BID PRN for VERTIGO, #20 TAB 0 Refills dizziness Prov: LORRI DAMIAN DO 01/09/22 CHRIS GARNICA DO Jan 09, 2022 17:07 LORRI DAMIAN DO Jan 09, 2022 20:23
[2022-01-09 17:27] LABS: BASO % 1 % (0-3); EOS # 0.1 x10^3/uL (0.0-0.7); EOS % 2 % (0-3); HEMATOCRIT 44.2 % (36.0-47.0); HEMOGLOBIN 14.4 g/dL (12.0-15.5); LYMPH # 1.9 x10^3/uL (1.0-4.8); LYMPH % 35 % (24-48); MEAN CORPUSCULAR HEMOGLOBIN 30 pg (25-35); MEAN CORPUSCULAR HGB CONC 33 g/dL (31-37); MEAN CORPUSCULAR VOLUME 93 fL (79-100); MONO # 0.3 x10^3/uL (0.0-1.1); MONO % 6 % (0-9); NEUT % 56 % (31-73); PLATELET COUNT 175 x10^3/uL (140-400); RED BLOOD COUNT 4.76 x10^6/uL (3.50-5.40); RED CELL DISTRIBUTION WIDTH 13.6 % (11.5-14.5); WHITE BLOOD COUNT 5.4 x10^3/uL (4.0-11.0)
[2022-01-09] MEDS ORDERED: IV NORMAL SALINE 1000ML BAG 1,000 ML IV ONE (17:30)
[2022-01-09] MEDS ORDERED: MECLIZINE HCL 12.5 MG TABLET. PO ONE (17:30)
[2022-01-09 17:38] LABS: CALCIUM 8.5 mg/dL (8.5-10.1); CREATININE 0.7 mg/dL (0.6-1.0); GFR 81.6
[2022-01-09 17:44] LABS: ALBUMIN 3.6 g/dL (3.4-5.0); MAGNESIUM 1.9 mg/dL (1.8-2.4); TOTAL BILIRUBIN 0.5 mg/dL (0.2-1.0); TOTAL PROTEIN 7.3 g/dL (6.4-8.2)
[2022-01-09] MEDS: fentaNYL PF VIAL 100 MCG/2 ML VIAL IV ONE ×2 (18:12→18:19)
[2022-01-09 18:26] LABS: CREATINE KINASE 48 U/L (26-192)
--- NOTE | 2022-01-09 18:32 | RAD ---
Exam: CT head and cervical spine without contrast INDICATION: Headache, dizziness TECHNIQUE: Sequential axial images through the head and cervical spine were obtained without the admi nistration of IV contrast. Exposure: One or more of the following in the visualized dose reduction techniques were utilized for this examination: 1. Automated exposure control 2. Adjustment of the MA and/or KV according to patient size 3. Use of iterative of reconstructive technique Comparisons: None FINDINGS: Head: No focal parenchymal lesion or hemorrhage is identified. There is no midline shift or sulcal effaceme nt. Patchy hypodensity in the periventricular white matter, similar prior study. No acute vascular territ ory infarction is identified. Alvarado-white distinction is preserved. The ventricular system is within normal limits without compression hydrocephalus. The basal cisterns are well maintained. The visualized portions of the paranasal sinuses and mastoid air cells are well-pneumatized. No acute fractures. Cervical spine: Straightening of cervical spine which may positional. Vertebral body heights are well-maintained. Fracture to the cervical spine is identified. Multilevel spondylotic change in cervical spine with degenerative disease greatest at C5-C6 and C6-C7 . Mild bilateral facet arthropathy is noted in cervical spine. Visualized paraspinal soft tissues are unremarkable. IMPRESSION: 1. No acute intracranial abnormality. 2. Negative CT C-spine for acute traumatic injury Electronically signed by: Mitesh Lange MD (01/09/2022 6:29 PM) [facility]
--- NOTE | 2022-01-09 19:46 | RAD ---
Exam: Right hip 2 views INDICATION: Pain status post fall TECHNIQUE: Frontal view of pelvis with frontal and frog-leg lateral views of the right hip Comparisons: None FINDINGS: Diffuse osteopenia. No acute or healed fractures. Soft tissues are unremarkable. Joint spaces are wel l-maintained. IMPRESSION: No displaced fracture in the setting of diffuse osteopenia. Electronically signed by: Mitesh Lange MD (01/09/2022 7:44 PM) [facility]
--- NOTE | 2022-01-09 19:51 | RAD ---
Exam: Sacrum 2 views INDICATION: Pain status post fall TECHNIQUE: Frontal and lateral views of the sacrum and coccyx Comparisons: None FINDINGS: Diffuse osteopenia. No displaced fracture identified. Soft tissues are unremarkable. Joint spaces are well-maintained. IMPRESSION: No acute fracture identified in the setting of diffuse osteopenia. Electronically signed by: Mitesh Lange MD (01/09/2022 7:48 PM) [facility]
[2022-01-09 20:06] LABS: BILIRUBIN,URINE NEGATIVE (NEG); CLARITY,URINE CLEAR; COLOR,URINE YELLOW
[2022-01-09 20:07] LABS: NITRITE,URINE NEGATIVE (NEG); PROTEIN,URINE NEGATIVE (NEG-TRACE); UROBILINOGEN,URINE 0.2 mg/dL (0.2 mg/dL)
[2022-01-09 20:20] LABS: BACTERIA,URINE 0 /HPF (0-FEW); WBC,URINE OCC /HPF (0-4)
[2022-01-09] MEDS ORDERED: MECL-75 PO (20:35)
[2022-01-09 20:50] VITALS: BP 179/88
--- NOTE | 2022-01-09 22:26 | EKG ---
[facility] [address] [place] [address] Test Date: 2022-01-09 Test Time: 16:15:13 Pat Name: QUEENIE GUERRA Department: Room: Gender: F Telephone Cleaner: Yash : 1945 Requested By: CHRIS GARNICA Order Number: [id number] Reading MD: Kurt Schwarz Measurements Intervals [place] Rate: 75 P: 64 PA: 142 QRS: -64 QRSD: 122 T: 32 QT: 414 QTc: 465 Interpretive Statements SINUS RHYTHM VENTRICULAR PREMATURE COMPLEX(ES) INCOMPLETE RIGHT BUNDLE BRANCH BLOCK Electronically Signed On 01-11-2022 18:00:20 COMPOSER TEACHING ARTIST by Kurt Schwarz
--- NOTE | 2022-01-12 06:30 | EKG ---
[facility] [address] [place] [address] Test Date: 2022-01-09 Test Time: 16:17:44 Pat Name: QUEENIE GUERRA Department: Room: Gender: F Civil Design Technician: Yash : 1945 Requested By: LORRI DAMIAN Order Number: [id number] Reading MD: Leroy Drummond MD Measurements Intervals [place] Rate: 71 P: 70 SD: 148 QRS: -61 QRSD: 130 T: 43 QT: 424 QTc: 466 Interpretive Statements SINUS RHYTHM rbbb pvc LAE SANDIE Electronically Signed On 01-12-2022 16:14:14 MORTGAGE PROCESSING MANAGER by Leroy Drummond MD
--- NOTE | 2022-01-21 14:20 | EKG ---
[facility] [address] [place] [address] Test Date: 2022-01-09 Test Time: 16:17:44 Pat Name: QUEENIE GUERRA Department: Room: Gender: F Childcare Center Administrator: Yash : 1945 Requested By: LORRI DAMIAN Order Number: [id number] Reading MD: Measurements Intervals [place] Rate: 71 P: 70 MO: 148 QRS: -61 QRSD: 130 T: 43 QT: 424 QTc: 466 Interpretive Statements SINUS RHYTHM rbbb pvc LAE SANDIE Electronically Signed On 01-12-2022 16:14:14 TALENT SCOUT by Leroy Drummond MD
== END 2022-01-09 20:50 | disposition home or self-care (01) ==
LOC: ER 16:07
DX: R51.9 Headache, unspecified (principal); R42 Dizziness and giddiness; G89.11 Acute pain due to trauma; M25.551 Pain in right hip; M54.50 Low back pain, unspecified; I10 Essential (primary) hypertension; F17.200 Nicotine dependence, unspecified, uncomplicated; Z88.5 Allergy status to narcotic agent; W18.39XA Other fall on same level, initial encounter; Y93.89 Activity, other specified; Y92.89 Other specified places as the place of occurrence of the external cause; Y99.8 Other external cause status
CPT/HCPCS: 36415; 70450; 72125; 72220; 73502; 80053; 81001; 82553; 83735; 84484; 85025; 93005; 96361; 96374; 99285; J3010; J7030; J8597